=== PATIENT | female | born 1995 | race Caucasian/White ===

== ENCOUNTER 2016-12-16 19:31 | Outpatient (CLI) | payer MEDICAID ==
[~2016-12-16] VITALS: Ht 149.9 cm; Wt 65.2 kg
[2016-12-16 19:40] VITALS: BP 119/77; RESP 18; Ht 149.9 cm; Wt 65.2 kg
[2016-12-16 19:46] LABS: URINE BLOOD (Dip) POC Negative (NEGATIVE)
[2016-12-16] MEDS ORDERED: FERR134T PO (19:52)
[2016-12-16] MEDS ORDERED: PRENAT PO (19:52)
--- NOTE | 2016-12-16 20:21 | QN ---
Documentation Comment OB tiage: @34+wks GA with dizziness and some pressure No VB +FM No LOF No CTXs NST reassuring for GA Mitchell WNL --->BPP Vaginal exam and Labs and Iv hydration ordered If patient feels improved and labos and Ultrasonographic findings are wnl she can be discharged NIKHIL CAMPOS M.D. Dec 16, 2016 20:21
[2016-12-16] MEDS ORDERED: LACTATED RINGER'S 1,000 ML IV ONE (20:30)
[2016-12-16 21:50] LABS: BASOPHILS % 0.4 % (0.0-2.0); EOSINOPHILS % 0.5 % (0.0-7.0); HEMATOCRIT 36.5 % (37.0-47.0); HEMOGLOBIN 12.3 g/dl (12.0-16.0); LYMPHOCYTES # 1.8 10^3/ul (0.8-2.9); LYMPHOCYTES % 19.2 % (15.0-51.0); MEAN CORPUSCULAR HEMOGLOBIN 31.3 pg (29.0-33.0); MEAN CORPUSCULAR HGB CONC 33.6 g/dl (32.0-37.0); MEAN PLATELET VOLUME 7.2 fl (7.4-10.4); MONOCYTE # 0.7 10^3/ul (0.3-0.9); MONOCYTES % 7.1 % (0.0-11.0); NEUTROPHILS % 72.8 % (39.0-77.0); PLATELET COUNT 306 10^3/UL (140-440); RED BLOOD COUNT 3.93 10^6/ul (4.20-5.40); RED CELL DISTRIBUTION WIDTH 13.7 % (11.5-14.5); UNCORRECTED WBC 9.6 10^3/ul (4.8-10.8); WHITE BLOOD COUNT 9.6 10^3/ul (4.8-10.8)
[2016-12-16 21:54] LABS: CONDITION 1
[2016-12-16 22:03] LABS: ALBUMIN 3.5 g/dl (3.3-4.9); POTASSIUM 3.6 mmol/L (3.5-5.1)
[2016-12-16 22:05] LABS: BILIRUBIN,INDIRECT 0.3 mg/dl (0-1.1); BILIRUBIN,TOTAL 0.3 mg/dl (0.2-1.3); CREATININE 0.39 mg/dl (0.44-1.00)
[2016-12-16 22:06] LABS: ALBUMIN/GLOBULIN RATIO 1.06; CALCIUM 8.8 mg/dl (8.4-10.2); TOTAL PROTEIN 6.8 g/dl (6.1-8.1)
--- NOTE | 2016-12-16 22:08 | RADRPT ---
PROCEDURE: US OB. CLINICAL INDICATION: Abdominal pain. TECHNIQUE: Multiple sonographic images of the pelvis were obtained. Transabdominal imaging only w as performed. The images were reviewed on a PACS workstation. COMPARISON: No prior studies are available for comparison. FINDINGS: There is a single viable intrauterine gestation. Cardiac activity is present with 124 beats per minute. There is a cephalic presentation. Measurements were made in order to determine age. The results are as follows: BPD = 8.48 cm HC = 30.74 cm AC = 30.48 cm FL = 6.59 cm Estimated gestational age of approximately 34 weeks 2 days. The estimated date of delivery is 01/25/2017. The EFW = 2387 g. EFW percentile: 29% The placenta is left lateral, grade 2. There is no evidence for an abruption or placenta previa. IMPRESSION: 1. Single viable intrauterine gestation of approximately 34 weeks 2 days, based on ultrasound measu rements. The estimated date of delivery is 01/25/2017. 2. EFW percentile: 29%. RPTAT: HTAR .Romie Pack MD, Date Time Electronically viewed and signed by .Romie Pack MD, on 12/16/2016 22:08 .R/
--- NOTE | 2016-12-16 22:10 | RADRPT ---
PROCEDURE: OB ultrasound for biophysical profile CLINICAL INDICATION: Abdominal pain. TECHNIQUE: Multiple sonographic images of the pelvis were obtained. Transabdominal view of the gr avid uterus are available for review. The images were reviewed on a PACS workstation. COMPARISON: None FINDINGS: breathing movement = 2/2 tone = 2/2 motion = 2/2 Amniotic fluid = 2/2 LIN = 10.8 cm Single live intrauterine in cephalic presentation with cardiac activity (129 bpm). Left lateral placenta, grade 2. IMPRESSION: 1. Single viable intrauterine gestation. 2. Biophysical profile = 8/8. 3. LIN = 10.8 cm. RPTAT: HTAR .Romie Pack MD, Date Time Electronically viewed and signed by .Romie Pack MD, MD on 12/16/2016 22:09 .R/
--- NOTE | 2016-12-16 23:32 | TRIAGE ---
OB Triage Datetime Report Generated by CPN: 12/16/2016 23:32 Datetime: 12/16/2016 22:56 Stage of : OB Triage Labor Evaluation Frequency: IRREGULAR Monitor Mode: External Duration (sec)2399: 40-60 Quality: Mild Pattern: Normal: <= 5 Contractions in 10 Minutes Heart Rate FHR Baseline Rate: 110 Monitor Mode: External US Variability: Moderate 6-25 bpm Accelerations: 15X15 Decelerations: None Category: Category I Datetime: 12/16/2016 22:42 Stage of : OB Triage Datetime: 12/16/2016 22:05 Stage of : OB Triage Assessment Type: Triage Datetime: 12/16/2016 22:00 Labor Evaluation Frequency: IRREGULAR Monitor Mode: External Duration (sec)2399: 40-60 Quality: Mild Pattern: Normal: <= 5 Contractions in 10 Minutes Resting Tone [place]: Relaxed Heart Rate FHR Baseline Rate: 130 Monitor Mode: External US Variability: Moderate 6-25 bpm Accelerations: 15X15 Decelerations: None Category: Category I Datetime: 12/16/2016 21:13 Stage of : OB Triage Datetime: 12/16/2016 21:00 Labor Evaluation Frequency: 6-10 Monitor Mode: External Duration (sec)2399: 50-90 Quality: Mild Pattern: Normal: <= 5 Contractions in 10 Minutes Resting Tone [place]: Relaxed Heart Rate FHR Baseline Rate: 115 Monitor Mode: External US Variability: Moderate 6-25 bpm Accelerations: 15X15 Decelerations: None Datetime: 12/16/2016 20:39 Vaginal Exam Dilatation (cms): 0.0 Effacement (%): 0 Station: -3 Exam By: BE Vaginal Bleeding: None Cervix, Consistency: Firm Cervix, Position: Posterior Presentation 'A': Unable to Assess Datetime: 12/16/2016 20:15 Membrane Status: Intact Datetime: 12/16/2016 20:10 Stage of : OB Triage Datetime: 12/16/2016 20:00 Labor Evaluation Frequency: IRREGULAR Monitor Mode: External Duration (sec)2399: 40-80 Quality: Mild Pattern: Normal: <= 5 Contractions in 10 Minutes Resting Tone [place]: Relaxed Heart Rate FHR Baseline Rate: 120 Monitor Mode: External US Variability: Moderate 6-25 bpm Accelerations: 15X15 Decelerations: None Category: Category I Datetime: 12/16/2016 19:59 Time of Arrival: 12/16/2016 19:25 EGA: 34.6 Arrived By: Wheelchair Arrived From: Home Chief Complaint: ABDOMINAL CRAMPING ALL DAY DIZZY AND BLURRY VISION SINCE 1600 NAUSEA SINCE 1700 Movement: Present Contractions: Irregular Time Contractions Began: 12/16/2016 08:00 Rupture of Membranes: Denies Vaginal Bleeding: None Vaginal Discharge: Denies Recent Sexual Intercouse: Denies Abdominal Trauma: Not Applicable Patient Complaints: Cramping; Visual Disturbance; Nausea Time Provider Notified: 12/16/2016 20:05 Provider Notified: ANDRES Initial Plan: CEFM, EFW, BPP, LIN, CBC, CMP, SVE, IV HYDRATION Datetime: 12/16/2016 19:39 Stage of : OB Triage Assessment Type: Triage Maternal Assessment Level of Consciousness: Fully Conscious DTR's/Clonus: DTRs 2+; No Clonus Headache: Denies Blurred Vision: No Respiratory Effort: Unlabored; Regular Rhythm; Equal Expansion Breath Sounds, Left: Clear and Equal Breath Sounds, Right: Clear and Equal Nausea/Vomiting: Denies RUQ Epigastric Pain: Denies Lower Extremities Edema: None Degree: None Upper Extremities Edema: None Degree: None Facial Edema: None Fall Risk Assessment History of Falling: (0) No Secondary Diagnosis: (0) No Ambulatory Aid: (0) Bedrest/Nurse Assist IV Therapy: (0) No Gait: (0) Normal/Bedrest/Immobile Mental Status: (0) Oriented to Own Ability Fall Score: 0 Fall Risk Score Definition: No Risk: No action required
== END 2016-12-16 23:12 | disposition home or self-care (01) ==
LOC: OBT 19:31 → L-D 19:32 → OBT 23:12
PROVIDERS: ATTEND Obstetrics & Gynecology
DX: O26.893 Other specified pregnancy related conditions, third trimester (principal); R42 Dizziness and giddiness; R10.9 Unspecified abdominal pain; Z3A.34 34 weeks gestation of pregnancy
CPT/HCPCS: 76816; 76818; 80053; 81003; 85025; J7120; 96360; G0463

== ENCOUNTER 2016-12-23 20:14 | Outpatient (CLI) | payer MEDICAID ==
[~2016-12-23] VITALS: Ht 149.9 cm; Wt 61.6 kg
[~2016-12-23 20:14] MED LIST: FERR134T PO; PRENAT PO
[2016-12-23 21:03] VITALS: BP 118/66; PULSE 108; RESP 18; Ht 149.9 cm; Wt 61.6 kg
[2016-12-23 22:18] LABS: BASOPHILS % 0.3 % (0.0-2.0); EOSINOPHILS # 0.1 10^3/ul (0.0-0.5); EOSINOPHILS % 0.8 % (0.0-7.0); HEMOGLOBIN 11.4 g/dl (12.0-16.0); LYMPHOCYTES # 1.9 10^3/ul (0.8-2.9); LYMPHOCYTES % 19.6 % (15.0-51.0); MEAN CORPUSCULAR HEMOGLOBIN 31.4 pg (29.0-33.0); MEAN CORPUSCULAR HGB CONC 33.6 g/dl (32.0-37.0); MEAN CORPUSCULAR VOLUME 93.4 fl (82.0-101.0); MEAN PLATELET VOLUME 6.6 fl (7.4-10.4); MONOCYTE # 0.8 10^3/ul (0.3-0.9); MONOCYTES % 8.4 % (0.0-11.0); NEUTROPHIL # 6.8 10^3/ul (1.6-7.5); NEUTROPHILS % 70.9 % (39.0-77.0); PLATELET COUNT 282 10^3/UL (140-440); RED BLOOD COUNT 3.64 10^6/ul (4.20-5.40); RED CELL DISTRIBUTION WIDTH 13.9 % (11.5-14.5); UNCORRECTED WBC 9.6 10^3/ul (4.8-10.8); WHITE BLOOD COUNT 9.6 10^3/ul (4.8-10.8)
[2016-12-23 22:22] LABS: CONDITION 1
--- NOTE | 2016-12-23 22:25 | RADRPT ---
PROCEDURE: OB ultrasound for biophysical profile CLINICAL INDICATION: induced hypertension. Clinical estimated gestational age is 35 wee ks 6 days with estimated date of delivery 01/21/2017. TECHNIQUE: Multiple sonographic images of the pelvis were obtained. Transabdominal view of the gr avid uterus are available for review. The images were reviewed on a PACS workstation. COMPARISON: 12/16/2016 FINDINGS: breathing movement = 2/2 tone = 2/2 motion = 2/2 LIN = 2/2 LIN = 11.75 cm Single live intrauterine in cephalic position with cardiac activity. heart rat e equals 131 beats per minute. The placenta is left lateral, grade II IMPRESSION: 1. Single live intrauterine gestation. 2. Biophysical profile = 8/8. 3. LIN = 11.75 cm. RPTAT: HJES .Antoine Gutierres MD, Date Time Electronically viewed and signed by .Antoine Gutierres MD, on 12/23/2016 22:25 .S/
[2016-12-23 22:31] LABS: ALBUMIN 3.2 g/dl (3.3-4.9)
[2016-12-23 22:32] LABS: POTASSIUM 4.3 mmol/L (3.5-5.1)
[2016-12-23 22:34] LABS: ALBUMIN/GLOBULIN RATIO 1.03
[2016-12-23 22:44] LABS: ADD UMIC YES; URINE BILIRUBIN (Dip) NEGATIVE (NEGATIVE); URINE BLOOD (Dip) NEGATIVE (NEGATIVE); URINE COLOR LT. YELLOW (YELLOW); URINE KETONES (Dip) NEGATIVE (NEGATIVE); URINE LEUKOCYTE ESTERASE (Dip) TRACE (NEGATIVE); URINE NITRITE (Dip) NEGATIVE (NEGATIVE); URINE TOTAL PROTEIN (Dip) NEGATIVE (NEGATIVE); URINE UROBILINOGEN (Dip) 0.2 E.U./dL (0.1-1.0)
[2016-12-23 22:51] LABS: BILIRUBIN,INDIRECT 0.2 mg/dl (0-1.1); BILIRUBIN,TOTAL 0.2 mg/dl (0.2-1.3); CREATININE 0.52 mg/dl (0.44-1.00); TOTAL PROTEIN 6.3 g/dl (6.1-8.1)
[2016-12-23 22:52] LABS: URINE RBCS 0-2 /HPF (0)
[2016-12-23 22:52] LABS: CALCIUM 8.8 mg/dl (8.4-10.2); URIC ACID 4.2 mg/dl (3.1-7.9)
[2016-12-23 22:53] LABS: BACTERIA,URINE FEW; SQUAMOUS EPITHELIAL CELL,UR MANY
--- NOTE | 2016-12-23 23:10 | HP ---
Date/Time of Note Date/Time of Note DATE: 12/23/16 TIME: 23:06 OB - History Hx of Present Chief Complaint: Evaluation of oreeclampsia Estimated Due Date: Jan 21, 2017 : 1 Para: 0 Spontaneous : 0 Therapeutic : 0 Care: Good Care Obstetrical Complications: None Medical Complications: None Past Family/Social History * Past Medical, Surgical, Family and Obstetric Histories reviewed from chart. OB Admission Exam Vital Signs Vital Signs Vital Signs Date Time Temp Pulse Resp B/P Pulse Ox O2 Delivery O2 Flow Rate FiO2 12/23/16 21:03 98.4 108 18 118/66 99 Room Air Physical Exam HEENT: WNL Heart: Rhythm Normal Lungs: Clear Abdomen: WNL Extremities: Normal Reflexes: Normal Last 72 hours Lab Results CBC & BMP 12/23/16 22:05 Liver Function Test 12/23/16 22:05 Alanine Aminotransferase (ALT/SGPT) 22 Albumin 3.2 L Alkaline Phosphatase 132 H Aspartate Amino Transf (AST/SGOT) 18 Direct Bilirubin 0.00 Total Protein 6.3 OB Assessment/Plan Reason for admission: observation Plan: Other (Work up revealed no sign of preeclampsia) Other plan: D/C home MARQUIS HINOJOSA MD Dec 23, 2016 23:10
--- NOTE | 2016-12-24 00:26 | TRIAGE ---
OB Triage Datetime Report Generated by CPN: 12/24/2016 00:25 Datetime: 12/23/2016 23:00 Stage of : OB Triage Labor Evaluation Frequency: occasional Monitor Mode: External Duration (sec)2399: 70 Quality: Mild Pattern: Normal: <= 5 Contractions in 10 Minutes Resting Tone [place]: Relaxed Heart Rate FHR Baseline Rate: 125 Monitor Mode: External US Variability: Moderate 6-25 bpm Accelerations: 15X15 Decelerations: None Category: Category I Pain Assessment Pain Scale: 0 Pain Presence: None/Denies Pain Type: N/A Pain Goal: 0 Pain Relief Measures: Comfort Measures Datetime: 12/23/2016 22:10 Stage of : OB Triage Labor Evaluation Frequency: occasional Monitor Mode: External Duration (sec)2399: 70 Quality: Mild Pattern: Normal: <= 5 Contractions in 10 Minutes Resting Tone [place]: Relaxed Heart Rate FHR Baseline Rate: 130 Monitor Mode: External US Variability: Moderate 6-25 bpm Accelerations: 15X15 Decelerations: None Category: Category I Datetime: 12/23/2016 21:00 Maternal Assessment Level of Consciousness: Fully Conscious DTR's/Clonus: DTRs 2+; No Clonus Headache: Denies Blurred Vision: No Nausea/Vomiting: Denies RUQ Epigastric Pain: Denies Facial Edema: None Labor Evaluation Frequency: x2 Monitor Mode: External Duration (sec)2399: 70-90 Quality: Mild Pattern: Normal: <= 5 Contractions in 10 Minutes Resting Tone [place]: Relaxed Heart Rate FHR Baseline Rate: 135 Monitor Mode: External US Variability: Moderate 6-25 bpm Accelerations: 15X15 Decelerations: None Category: Category I Pain Assessment Pain Scale: 0 Pain Presence: None/Denies Pain Type: N/A Pain Goal: 0 Datetime: 12/23/2016 20:40 Assessment Type: Triage Maternal Assessment Level of Consciousness: Fully Conscious DTR's/Clonus: DTRs 2+; No Clonus Headache: Denies Blurred Vision: No Respiratory Effort: Unlabored Nausea/Vomiting: Denies RUQ Epigastric Pain: Denies Lower Extremities Edema: None Degree: None Upper Extremities Edema: None Degree: None Facial Edema: None Fall Risk Assessment History of Falling: (0) No Secondary Diagnosis: (0) No Ambulatory Aid: (0) Bedrest/Nurse Assist IV Therapy: (0) No Gait: (0) Normal/Bedrest/Immobile Mental Status: (0) Oriented to Own Ability Fall Score: 0 Fall Risk Score Definition: No Risk: No action required Datetime: 12/23/2016 20:15 Time of Arrival: 12/23/2016 20:12 EGA: 35.6 Arrived By: Ambulatory Arrived From: Dr. Mcconnell Chief Complaint: sent in from clinic PIH Movement: Present Contractions: Occasional Vaginal Bleeding: None Vaginal Discharge: Denies Recent Sexual Intercouse: Denies Abdominal Trauma: Not Applicable Patient Complaints: Other Initial Plan: NST, CBC, CMP, uric acid, EFW, BPP Datetime: 12/16/2016 19:59 EGA: 34.6 Datetime: 12/16/2016 19:39 Fall Score: 0 Fall Risk Score Definition: No Risk: No action required
== END 2016-12-23 23:12 | disposition home or self-care (01) ==
LOC: OBT 20:14 → L-D 20:15 → OBT 23:12
PROVIDERS: ATTEND Obstetrics & Gynecology
DX: O13.3 Gestational [pregnancy-induced] hypertension without significant proteinuria, third trimester (principal); Z3A.35 35 weeks gestation of pregnancy
CPT/HCPCS: 76818; 80053; 81001; 84560; 85025; Z7500; 81003; G0463

== ENCOUNTER 2017-01-14 17:20 | Outpatient (CLI) | payer MEDICAID ==
[~2017-01-14] VITALS: Ht 149.9 cm; Wt 70.6 kg
[2017-01-14 17:35] VITALS: BP 120/78; Ht 149.9 cm; Wt 70.6 kg
--- NOTE | 2017-01-14 18:19 | RADRPT ---
PROCEDURE: Biophysical profile CLINICAL INDICATION: Headache TECHNIQUE: Color and peace-scale ultrasound images of an intrauterine gestation were obtained. COMPARISON: December 23, 2016 FINDINGS: A single live intrauterine gestation is identified in cephalic position with an estimated hear t rate of 141 beats per minute. The placenta is located fundally and has a grade of 2. The cervix is obscured by head shadows. No evidence of abruption identified. LIN is 14.6 cm. movement 2/2. tone 2/2. breathing movement 2/2. Qualitative AFV 2/2 Total biophysical profile 07/07 IMPRESSION: 07/07 biophysical profile. RPTAT: AA .Jay Rodriguez MD, Date Time Electronically viewed and signed by .Jay Rodriguez MD, MD on 01/14/2017 18:19 .P/
[2017-01-14 19:19] LABS: ADD UMIC YES; URINE BILIRUBIN (Dip) NEGATIVE (NEGATIVE); URINE BLOOD (Dip) NEGATIVE (NEGATIVE); URINE COLOR LT. YELLOW (YELLOW); URINE GLUCOSE (Dip) NEGATIVE (NEGATIVE); URINE KETONES (Dip) NEGATIVE (NEGATIVE); URINE LEUKOCYTE ESTERASE (Dip) TRACE (NEGATIVE); URINE NITRITE (Dip) NEGATIVE (NEGATIVE); URINE TOTAL PROTEIN (Dip) NEGATIVE (NEGATIVE); URINE UROBILINOGEN (Dip) 0.2 E.U./dL (0.1-1.0)
[2017-01-14 19:28] LABS: URINE RBCS 0-2 /HPF (0)
[2017-01-14 19:29] LABS: BACTERIA,URINE FEW
[2017-01-14 19:31] LABS: BASOPHILS % 0.3 % (0.0-2.0); EOSINOPHILS % 0.4 % (0.0-7.0); HEMATOCRIT 36.1 % (37.0-47.0); HEMOGLOBIN 12.1 g/dl (12.0-16.0); LYMPHOCYTES # 1.7 10^3/ul (0.8-2.9); LYMPHOCYTES % 17.1 % (15.0-51.0); MEAN CORPUSCULAR HEMOGLOBIN 31.5 pg (29.0-33.0); MEAN CORPUSCULAR HGB CONC 33.6 g/dl (32.0-37.0); MEAN CORPUSCULAR VOLUME 93.8 fl (82.0-101.0); MEAN PLATELET VOLUME 7.1 fl (7.4-10.4); MONOCYTE # 0.8 10^3/ul (0.3-0.9); MONOCYTES % 8.2 % (0.0-11.0); NEUTROPHIL # 7.4 10^3/ul (1.6-7.5); PLATELET COUNT 275 10^3/UL (140-440); RED BLOOD COUNT 3.84 10^6/ul (4.20-5.40); RED CELL DISTRIBUTION WIDTH 14.5 % (11.5-14.5)
[2017-01-14 19:34] LABS: CONDITION 1
[2017-01-14] MEDS ORDERED: ACETAMINOPHEN 500 MG TAB PO STA (19:36)
[2017-01-14 19:44] LABS: INR 0.9; PROTIME 12.1 Sec (12.2-14.2); PT RATIO 0.9
[2017-01-14 19:45] LABS: PARTIAL THROMBOPLASTIN TIME 28.1 Sec (25.0-35.0)
[2017-01-14 19:59] LABS: ALBUMIN 3.2 g/dl (3.3-4.9); POTASSIUM 3.9 mmol/L (3.5-5.1)
[2017-01-14 20:01] LABS: BILIRUBIN,INDIRECT 0.3 mg/dl (0-1.1); BILIRUBIN,TOTAL 0.3 mg/dl (0.2-1.3); CREATININE 0.45 mg/dl (0.44-1.00)
[2017-01-14 20:02] LABS: ALBUMIN/GLOBULIN RATIO 1.03; CALCIUM 8.7 mg/dl (8.4-10.2); TOTAL PROTEIN 6.3 g/dl (6.1-8.1)
[2017-01-14 20:58] LABS: URIC ACID 4.2 mg/dl (3.1-7.9)
--- NOTE | 2017-01-14 21:25 | QN ---
Documentation Comment 22-year-old with IUP at 39 weeks with care at [facility] presented with complaint of cramps and contractions and headache with nausea. Patient had one-time elevated blood pressure 130s over 80s range when she was in the office visit. She currently denies any blurred vision or epigastric pain or right upper quadrant pain. She denies any leaking of fluid, vaginal bleeding or decreased movement. Her nausea started since today and she had vomiting 1. General appearance: Patient is alert and oriented and is in mild distress. Abdomen is soft, nontender, no rebound tenderness, no guarding no rigidity. Next Fundal height consistent with gestational age. NST: Category 1. Some contractions on the monitor seen. Blood pressures serially checked during observation all between 110-120s over 70s. PIH panel negative Cervical exam: Closed/long and high. BPP: 07/07 LIN: 14.6 PROCEDURE: Biophysical profile CLINICAL INDICATION: Headache TECHNIQUE: Color and peace-scale ultrasound images of an intrauterine gestation were obtained. COMPARISON: December 23, 2016 FINDINGS: A single live intrauterine gestation is identified in cephalic position with an estimated heart rate of 141 beats per minute. The placenta is located fundally and has a grade of 2. The cervix is obscured by head shadows. No evidence of abruption identified. LIN is 14.6 cm. movement 2/2. tone 2/2. breathing movement 2/2. Qualitative AFV 2/2 Total biophysical profile 07/07 IMPRESSION: 07/07 biophysical profile. PIH labs: negative Assessment IUP at 39 weeks Headache, transient elevated borderline blood pressure. No clear evidence of preeclampsia. Headache resolved with Tylenol next PIH labs normal False labor pain, resolved with hydration No cervical change noted in repeat examination testing reassuring Patient was discharged home with strict preeclampsia precautions as well as labor precautions and kick count next Follow-up with OB clinic in the next 2-3 days recommended Signs and symptoms of preeclampsia discussed in detail with the patient RT to triage as needed any other concerns BOZENA ROCHE MD Jan 14, 2017 21:25
--- NOTE | 2017-01-14 22:21 | TRIAGE ---
OB Triage Datetime Report Generated by CPN: 01/14/2017 22:20 Datetime: 01/14/2017 19:29 Maternal Assessment Level of Consciousness: Fully Conscious Headache: Generalized Blurred Vision: No Nausea/Vomiting: Hx of Nausea/Vomiting RUQ Epigastric Pain: Denies Facial Edema: None Labor Evaluation Frequency: 3-6 Monitor Mode: External Duration (sec)2399: 40-60 Quality: Mild Pattern: Normal: <= 5 Contractions in 10 Minutes Resting Tone [place]: Relaxed Heart Rate FHR Baseline Rate: 120 Monitor Mode: External US FHR Baseline Changes: No Baseline Change Variability: Moderate 6-25 bpm Accelerations: 15X15 Decelerations: None Category: Category I Datetime: 01/14/2017 18:54 Heart Rate FHR Baseline Rate: 125 Monitor Mode: External US Variability: Moderate 6-25 bpm Accelerations: 15X15 Decelerations: None Category: Category I Datetime: 01/14/2017 18:44 Labor Evaluation Frequency: 1-5 Monitor Mode: External Duration (sec)2399: 30-50 Pattern: Normal: <= 5 Contractions in 10 Minutes Resting Tone [place]: Relaxed Heart Rate FHR Baseline Rate: 125 Variability: Moderate 6-25 bpm Accelerations: 15X15 Decelerations: None Category: Category I Datetime: 01/14/2017 18:05 Comments: US AT BEDSIDE Datetime: 01/14/2017 17:39 Stage of : OB Triage Maternal Assessment Level of Consciousness: Fully Conscious DTR's/Clonus: DTRs 2+; No Clonus Headache: Denies Blurred Vision: No Respiratory Effort: Unlabored; Regular Rhythm; Equal Expansion Breath Sounds, Left: Clear and Equal Breath Sounds, Right: Clear and Equal Nausea/Vomiting: Denies RUQ Epigastric Pain: Denies Facial Edema: None Temperature Route: Axillary Fall Risk Assessment History of Falling: (0) No Secondary Diagnosis: (0) No Ambulatory Aid: (0) Bedrest/Nurse Assist IV Therapy: (0) No Gait: (0) Normal/Bedrest/Immobile Mental Status: (0) Oriented to Own Ability Fall Score: 0 Fall Risk Score Definition: No Risk: No action required Monitor Mode: External Heart Rate FHR Baseline Rate: 135 Monitor Mode: External US Variability: Moderate 6-25 bpm Accelerations: 15X15 Decelerations: None Category: Category I Pain Assessment Pain Scale: 5 Pain Presence: Intermittent Pain Type: Cramping Vaginal Exam Dilatation (cms): 0.0 Effacement (%): 50 Station: -3 Exam By: Sang BECKWITH Datetime: 01/14/2017 17:37 Time of Arrival: 01/14/2017 17:16 EGA: 39.0 Arrived By: Ambulatory Arrived From: Home Chief Complaint: N/V, HEADACHE, PRESSURE Movement: Present Rupture of Membranes: Denies Vaginal Discharge: Denies Recent Sexual Intercouse: Denies Abdominal Trauma: Not Applicable Patient Complaints: Cramping; Nausea; Vomiting Time Provider Notified: 01/14/2017 17:16 Provider Notified: DR. TERRELL Initial Plan: NST Datetime: 12/23/2016 20:40 Fall Score: 0 Fall Risk Score Definition: No Risk: No action required Datetime: 12/23/2016 20:15 EGA: 35.6 Chief Complaint: sent in from clinic for [facility] panel Time Provider Notified: 12/23/2016 21:00 Provider Notified: Delshad Datetime: 12/16/2016 19:59 EGA: 34.6 Datetime: 12/16/2016 19:39 Fall Score: 0 Fall Risk Score Definition: No Risk: No action required
== END 2017-01-14 21:57 | disposition home or self-care (01) ==
LOC: OBT 17:20 → L-D 17:33 → OBT 21:57
PROVIDERS: ATTEND Obstetrics & Gynecology
DX: O62.9 Abnormality of forces of labor, unspecified (principal); R51 Headache; O21.0 Mild hyperemesis gravidarum; Z3A.39 39 weeks gestation of pregnancy
CPT/HCPCS: 76818; 80053; 81001; 81003; 84560; 85025; 85610; 85730; Z7610

== ENCOUNTER 2017-01-15 10:18 | Inpatient (IN) | payer MEDICAID ==
[~2017-01-15] VITALS: Ht 149.9 cm; Wt 69.3 kg
[2017-01-15 10:26] VITALS: Ht 149.9 cm; Wt 69.3 kg
[2017-01-15 10:27] VITALS: BP 120/65; PULSE 98; RESP 18
--- NOTE | 2017-01-15 13:28 | RADRPT ---
PROCEDURE: US OB biophysical profile. CLINICAL INDICATION: evaluation TECHNIQUE: Multiple sonographic images of the pelvis were obtained. The images were reviewed on a PACS workstation. COMPARISON: Obstetrical ultrasound from 01/14/2017 FINDINGS: There is a single viable intrauterine gestation. Cardiac activity is present with 121 beats per min juana. There is a vertex presentation. The placenta is fundal. There is no evidence of placental abruption. There is a mildly low amount of amniotic fluid with an LIN = 7.9 cm. Biophysical profile: movement 2/2 tone 2/2. breathing 2/2 LIN 2/2 Total 07/07 RPTAT: AA . IMPRESSION: Normal biophysical profile. Mildly low ILN of 7.9 cm, compared with an LIN of 14.6 cm yesterday. Physician Bridger Date Time Electronically viewed and signed by Physician Bridger on 01/15/2017 13:27 /
--- NOTE | 2017-01-15 17:19 | CONS ---
Date/Time of Note Date/Time of Note DATE: 01/15/17 TIME: 16:41 Consultation Date/Type/Reason Admit Date/Time Initial Consult Date January 15, 2017 Triage consult and H&P This patient is a 22 years old 1 para 0 which is 39 weeks and 1 day today. She came to triage area for repeat monitoring, , She actually was sent from the NST clinic to be further evaluated and possible induction,, , On examination her contractions very irregular and every 8-10 minutes, , heart tone is normal with good variability and acceleration baseline is around 115., On pelvic examination cervix is closed 30% effaced and high -4 posterior. Her blood pressure is 120/65 pulse rate 98 on ultrasound study her biophysical profile is 8 out of 8 . , Her LIN which was 14.6 yesterday today is 7.9 cm I I discussed the case with Dr. Forbes as well as her attending physician Dr. Carmen we will admit her for observation and most likely induction the patient family also insisting on her admission and induction 24 HR Interval Summary Subjective hx not possible: pt non-verbal, pt critical Constitutional: diaphoresis, no complaints Detailed Summary Eyes: no complaints ENT: no complaints Respiratory: no complaints Cardiovascular: no complaints Gastrointestinal: no complaints Genitourinary: other Musculoskeletal: no complaints Skin: no complaints Endocrine: no complaints Psychological: no complaints Immunologic: no complaints Additional Comments Will admit for observation and induction. Exam/Review of Systems Vital Signs Vitals Vital Signs Date Time Temp Pulse Resp B/P Pulse Ox O2 Delivery O2 Flow Rate FiO2 01/15/17 10:27 98.2 98 18 120/65 Room Air LENARD MOORE MD Jan 15, 2017 17:19
[2017-01-15] MEDS ORDERED: LACTATED RINGER'S 1,000 ML IV SCH (18:12)
[2017-01-15] MEDS ORDERED: OXYTOCIN 30 UNITS/LR 500 ML IV PRN (18:30)
[2017-01-15] MEDS ORDERED: CARBOPROST 250 MCG INJ IM PRN (18:30)
[2017-01-15] MEDS ORDERED: BUTORPHANOL 2 MG INJ IV PRN (18:30)
[2017-01-15] MEDS ORDERED: METHYLERGONOVINE 0.2 MG INJ IM PRN (18:30)
[2017-01-15] MEDS ORDERED: IBUPROFEN 600 MG TAB PO PRN (18:30)
[2017-01-15] MEDS ORDERED: LACTATED RINGER'S 1,000 ML IV PRN (18:30)
[2017-01-15] MEDS ORDERED: MISOPROSTOL 200 MCG TAB PR PRN (18:30)
[2017-01-15] MEDS ORDERED: LIDOCAINE 1% (MPF) 30 ML INJ INJ PRN (18:30)
[2017-01-15] MEDS ORDERED: OXYTOCIN 30 UNITS/LR 500 ML IV SCH ×2 (18:30)
[2017-01-15 20:28] LABS: INR 0.97; PROTIME 12.9 Sec (12.2-14.2)
[2017-01-15 20:38] LABS: BASOPHILS % 0.2 % (0.0-2.0); EOSINOPHILS % 0.1 % (0.0-7.0); HEMATOCRIT 37.2 % (37.0-47.0); HEMOGLOBIN 12.6 g/dl (12.0-16.0); LYMPHOCYTES # 1.6 10^3/ul (0.8-2.9); LYMPHOCYTES % 17.3 % (15.0-51.0); MEAN CORPUSCULAR HEMOGLOBIN 31.5 pg (29.0-33.0); MEAN CORPUSCULAR HGB CONC 33.8 g/dl (32.0-37.0); MEAN CORPUSCULAR VOLUME 93.2 fl (82.0-101.0); MEAN PLATELET VOLUME 7.4 fl (7.4-10.4); MONOCYTE # 0.6 10^3/ul (0.3-0.9); MONOCYTES % 6.8 % (0.0-11.0); NEUTROPHILS % 75.6 % (39.0-77.0); PLATELET COUNT 284 10^3/UL (140-440); RED BLOOD COUNT 3.99 10^6/ul (4.20-5.40); RED CELL DISTRIBUTION WIDTH 14.6 % (11.5-14.5); UNCORRECTED WBC 9.3 10^3/ul (4.8-10.8); WHITE BLOOD COUNT 9.3 10^3/ul (4.8-10.8)
[2017-01-15 20:41] LABS: CONDITION 1; LH ANALYZER COMMENTS 1
[2017-01-15] MEDS ORDERED: ACETAMINOPHEN 325 MG TAB PO ONE (21:00)
[2017-01-15 22:46] LABS: PARTIAL THROMBOPLASTIN TIME 27.7 Sec (25.0-35.0)
--- NOTE | 2017-01-16 10:21 | NSTRPT ---
NST Information Datetime Report Generated by CPN: 01/16/2017 10:21 Datetime: 01/15/2017 08:11 NST Information EGA: 39.1 Test Number: 6 Time on Monitor: 01/15/2017 08:28 Time off Monitor: 01/15/2017 09:10 NST Duration (Min): 42 Reason for NST: Gestational Hypertension Test and Monitor Explained: Monitor Explained; Test Explained; Verbalized Understanding Pulse: 74 Resp: 18 SBP: 107 DBP: 58 Test Evaluation NST Interventions: Reposition Patient; Acoustic Stimulation Patient States Movement: Present Contraction Frequency: x3, mild FHR Baseline : 110 Variability: Moderate 6-25bpm Accelerations: 15X15 Decelerations: Variable FHR Category: Category I NST Results: Questionable Comments: PT TO U/S. LIN 15.8, cephalic Dr. Perla informed of variable deceleration. MD recommends delivery of pt. Pt to OB Triage Electronically Signed By E-Signature: with User ID: [id number], Addendum/Amendment: Signed for Dr. Tafti Datetime: 01/12/2017 08:11 NST Information EGA: 38.5 NST Duration (Min): 26 Datetime: 01/08/2017 08:14 NST Information EGA: 38.1 NST Duration (Min): 26 Datetime: 01/05/2017 08:10 NST Information EGA: 37.5 NST Duration (Min): 33 Datetime: 01/01/2017 08:14 NST Information EGA: 37.1 NST Duration (Min): 24 Datetime: 12/29/2016 08:16 NST Information EGA: 36.5 NST Duration (Min): 40
== END 2017-01-15 23:30 | disposition home or self-care (01) | DRG 778 ==
LOC: OBT 10:18 → L-D 10:19 → OBT 19:28
PROVIDERS: ADMIT Obstetrics & Gynecology; ATTEND Obstetrics & Gynecology
DX: O60.03 Preterm labor without delivery, third trimester (principal); Z3A.39 39 weeks gestation of pregnancy
CPT/HCPCS: 76818; 85025; 85610; 85730; 86592; 86900; 86901; 87340; G0463; J7120

== ENCOUNTER 2017-01-20 20:00 | Outpatient (CLI) | payer MEDICAID ==
[~2017-01-20] VITALS: Ht 149.9 cm; Wt 72.0 kg
[2017-01-20 20:24] LABS: URINE BLOOD (Dip) POC Negative (NEGATIVE)
[2017-01-20 20:50] VITALS: BP 128/75; PULSE 106; RESP 18; Ht 149.9 cm; Wt 72.0 kg
--- NOTE | 2017-01-20 21:19 | NSTRPT ---
NST Information Datetime Report Generated by CPN: 01/20/2017 21:19 Datetime: 01/19/2017 08:12 NST Information EGA: 39.5 Test Number: 7 Time on Monitor: 01/19/2017 08:32 Time off Monitor: 01/19/2017 08:52 NST Duration (Min): 20 Reason for NST: Gestational Hypertension Test and Monitor Explained: Monitor Explained; Test Explained Temp : 98.3 Pulse: 86 Resp: 16 SBP: 120 DBP: 63 Test Evaluation NST Interventions: None Patient States Movement: Present Contraction Frequency: X1` FHR Baseline : 125 Variability: Moderate 6-25bpm Accelerations: 15X15 Decelerations: None FHR Category: Category I NST Results: Reactive Comments: To u/s, CEPHALIC, LIN 10.5 0902-Pt home undelivered with labor precautions, has clinic appt tomorrow, kick count inst ructions reviewed and follow up NST appt given. States understanding and denies further questions at this time. Electronically Signed By E-Signature: with User ID: [id number] Datetime: 01/15/2017 08:11 NST Information EGA: 39.1 NST Duration (Min): 42 Datetime: 01/12/2017 08:11 NST Information EGA: 38.5 NST Duration (Min): 26 Datetime: 01/08/2017 08:14 NST Information EGA: 38.1 NST Duration (Min): 26 Datetime: 01/05/2017 08:10 NST Information EGA: 37.5 NST Duration (Min): 33 Datetime: 01/01/2017 08:14 NST Information EGA: 37.1 NST Duration (Min): 24 Datetime: 12/29/2016 08:16 NST Information EGA: 36.5 NST Duration (Min): 40
--- NOTE | 2017-01-20 22:32 | TRIAGE ---
OB Triage Datetime Report Generated by CPN: 01/20/2017 22:32 Datetime: 01/20/2017 21:11 Stage of : OB Triage Monitor Mode: External Quality: Mild Pattern: Normal: <= 5 Contractions in 10 Minutes Resting Tone [place]: Relaxed Heart Rate FHR Baseline Rate: 130 Monitor Mode: External US FHR Baseline Changes: No Baseline Change Variability: Moderate 6-25 bpm Accelerations: 15X15 Decelerations: None Category: Category I Datetime: 01/20/2017 20:46 Stage of : OB Triage Monitor Mode: External Quality: Mild Pattern: Normal: <= 5 Contractions in 10 Minutes Resting Tone [place]: Relaxed Heart Rate FHR Baseline Rate: 120 Monitor Mode: External US FHR Baseline Changes: No Baseline Change Variability: Moderate 6-25 bpm Accelerations: 15X15 Decelerations: None Category: Category I Datetime: 01/20/2017 20:41 Time of Arrival: 01/20/2017 19:58 EGA: 39.6 Arrived By: Ambulatory Arrived From: Home Chief Complaint: sent from clinic d/t elevated BP Movement: Present Initial Plan: EFM Datetime: 01/20/2017 20:16 Maternal Assessment Level of Consciousness: Fully Conscious DTR's/Clonus: DTRs 1+ Headache: Denies Blurred Vision: No Nausea/Vomiting: Denies RUQ Epigastric Pain: Denies Facial Edema: None Labor Evaluation Frequency: placed Monitor Mode: External Resting Tone [place]: Relaxed Monitor Mode: External US Comments: FHT 120 Pain Assessment Pain Scale: 0 Pain Presence: None/Denies Pain Type: N/A Datetime: 01/15/2017 23:17 Stage of : Labor Datetime: 01/15/2017 23:00 Stage of : Labor Maternal Assessment Level of Consciousness: Fully Conscious Labor Evaluation Frequency: Irregular Monitor Mode: External Duration (sec)2399: 40-80 Quality: Mild Pattern: Normal: <= 5 Contractions in 10 Minutes Resting Tone [place]: Relaxed Heart Rate FHR Baseline Rate: 120 Monitor Mode: External US FHR Baseline Changes: No Baseline Change Variability: Moderate 6-25 bpm Accelerations: 15X15 Decelerations: None Category: Category I Datetime: 01/15/2017 22:00 Stage of : Labor Maternal Assessment Level of Consciousness: Fully Conscious Labor Evaluation Frequency: Irregular Monitor Mode: External Duration (sec)2399: 60-100 Quality: Mild Pattern: Normal: <= 5 Contractions in 10 Minutes Resting Tone [place]: Relaxed Heart Rate FHR Baseline Rate: 120 Monitor Mode: External US FHR Baseline Changes: No Baseline Change Variability: Moderate 6-25 bpm Accelerations: 15X15 Decelerations: None Pain Assessment Pain Scale: 5 Pain Presence: Intermittent Pain Type: Cramping; Contraction Pain Location: Abdomen; Back Pain Goal: 2 Pain Relief Measures: Comfort Measures Datetime: 01/15/2017 21:16 Vaginal Exam Dilatation (cms): 0.5 Effacement (%): 50 Station: -3 Exam By: Dr Gomes Membrane Status: Intact Vaginal Bleeding: None Cervix, Consistency: Soft Cervix, Position: Posterior Presentation 'A': Cephalic Datetime: 01/15/2017 21:00 Stage of : Labor Maternal Assessment Level of Consciousness: Fully Conscious Labor Evaluation Frequency: 7-10 Monitor Mode: External Duration (sec)2399: 60-100 Quality: Mild Pattern: Normal: <= 5 Contractions in 10 Minutes Resting Tone [place]: Relaxed Heart Rate FHR Baseline Rate: 120 Monitor Mode: External US FHR Baseline Changes: No Baseline Change Variability: Moderate 6-25 bpm Accelerations: 15X15 Decelerations: None Category: Category I Pain Assessment Pain Scale: 5 Pain Presence: Intermittent Pain Type: Cramping; Contraction Pain Location: Abdomen; Back Pain Goal: 2 Pain Relief Measures: Comfort Measures Pain Assessment Comments: Patient states the pain is still tolerable Datetime: 01/15/2017 20:48 Headache: Generalized Datetime: 01/15/2017 20:41 Assessment Type: Admission Assessment Vaginal Bleeding: None Maternal Assessment Level of Consciousness: Fully Conscious DTR's/Clonus: DTRs 2+; No Clonus Headache: Denies Blurred Vision: No Respiratory Effort: Unlabored; Regular Rhythm; Equal Expansion Breath Sounds, Left: Clear and Equal Breath Sounds, Right: Clear and Equal Nausea/Vomiting: Denies RUQ Epigastric Pain: Denies Lower Extremities Edema: None Degree: None Upper Extremities Edema: None Degree: None Facial Edema: None Fall Risk Assessment History of Falling: (0) No Secondary Diagnosis: (0) No Ambulatory Aid: (0) Bedrest/Nurse Assist IV Therapy: (0) No Gait: (0) Normal/Bedrest/Immobile Mental Status: (0) Oriented to Own Ability Fall Score: 0 Fall Risk Score Definition: No Risk: No action required Labor Evaluation Frequency: 7-10 Duration (sec)2399: 50-100 Quality: Mild Pattern: Normal: <= 5 Contractions in 10 Minutes Resting Tone [place]: Relaxed Contraction Comments: Patient states the contractions are becoming more regular throughout the day Heart Rate FHR Baseline Rate: 125 Variability: Moderate 6-25 bpm Accelerations: 15X15 Decelerations: None Category: Category I Pain Assessment Pain Scale: 5 Pain Presence: Intermittent Pain Type: Cramping; Contraction Pain Location: Abdomen; Back Pain Goal: 2 Pain Assessment Comments: Patient states the pain is still tolerable Membrane Status: Intact Datetime: 01/15/2017 20:00 Stage of : Labor Labor Evaluation Frequency: 7-15 Monitor Mode: External Duration (sec)2399: 50-80 Quality: Mild Pattern: Normal: <= 5 Contractions in 10 Minutes Resting Tone [place]: Relaxed Heart Rate FHR Baseline Rate: 120 Monitor Mode: External US FHR Baseline Changes: No Baseline Change Variability: Moderate 6-25 bpm Accelerations: 15X15 Decelerations: None Category: Category I Pain Assessment Pain Scale: 5 Pain Presence: Intermittent Pain Type: Cramping; Contraction Pain Location: Abdomen; Back Pain Goal: 2 Pain Relief Measures: Comfort Measures Pain Assessment Comments: Patient states the pain is still tolerable Datetime: 01/15/2017 19:00 Labor Evaluation Frequency: IRREGULAR Monitor Mode: External Duration (sec)2399: 50-100 Quality: Mild Pattern: Normal: <= 5 Contractions in 10 Minutes Resting Tone [place]: Relaxed Heart Rate FHR Baseline Rate: 125 Monitor Mode: External US FHR Baseline Changes: No Baseline Change Variability: Moderate 6-25 bpm Accelerations: 15X15 Decelerations: None Category: Category I Datetime: 01/15/2017 18:00 Labor Evaluation Frequency: IRREGULAR Monitor Mode: External Duration (sec)2399: 40-100 Quality: Mild Pattern: Normal: <= 5 Contractions in 10 Minutes Resting Tone [place]: Relaxed Heart Rate FHR Baseline Rate: 120 Monitor Mode: External US FHR Baseline Changes: No Baseline Change Variability: Moderate 6-25 bpm Accelerations: 15X15 Decelerations: None Category: Category I Datetime: 01/15/2017 17:00 Labor Evaluation Frequency: IRREGULAR Monitor Mode: External Duration (sec)2399: 50-110 Quality: Mild Pattern: Normal: <= 5 Contractions in 10 Minutes Resting Tone [place]: Relaxed Heart Rate FHR Baseline Rate: 125 Monitor Mode: External US FHR Baseline Changes: No Baseline Change Variability: Moderate 6-25 bpm Accelerations: 15X15 Decelerations: None Category: Category I Datetime: 01/15/2017 16:00 Labor Evaluation Frequency: IRREGULAR Monitor Mode: External Duration (sec)2399: 50-100 Quality: Mild Pattern: Normal: <= 5 Contractions in 10 Minutes Resting Tone [place]: Relaxed Heart Rate FHR Baseline Rate: 125 Monitor Mode: External US FHR Baseline Changes: No Baseline Change Variability: Moderate 6-25 bpm Accelerations: 15X15 Decelerations: None Category: Category I Datetime: 01/15/2017 15:00 Labor Evaluation Frequency: OCCAS Monitor Mode: External Duration (sec)2399: 50-110 Quality: Mild Pattern: Normal: <= 5 Contractions in 10 Minutes Resting Tone [place]: Relaxed Heart Rate FHR Baseline Rate: 120 Monitor Mode: External US FHR Baseline Changes: No Baseline Change Variability: Moderate 6-25 bpm Accelerations: 15X15 Decelerations: Variable Category: Category II Datetime: 01/15/2017 14:00 Labor Evaluation Frequency: IRREGULAR Monitor Mode: External Duration (sec)2399: 50-120 Quality: Mild Pattern: Normal: <= 5 Contractions in 10 Minutes Resting Tone [place]: Relaxed Heart Rate FHR Baseline Rate: 115 Monitor Mode: External US FHR Baseline Changes: No Baseline Change Variability: Moderate 6-25 bpm Accelerations: 15X15 Decelerations: None Category: Category I Datetime: 01/15/2017 13:00 Labor Evaluation Frequency: OCCAS Monitor Mode: External Duration (sec)2399: 40-110 Quality: Mild Pattern: Normal: <= 5 Contractions in 10 Minutes Resting Tone [place]: Relaxed Heart Rate FHR Baseline Rate: 115 Monitor Mode: External US FHR Baseline Changes: No Baseline Change Variability: Moderate 6-25 bpm Accelerations: 15X15 Decelerations: None Category: Category I Datetime: 01/15/2017 12:00 Labor Evaluation Frequency: OCCAS Monitor Mode: External Duration (sec)2399: 40-120 Quality: Mild Pattern: Normal: <= 5 Contractions in 10 Minutes Resting Tone [place]: Relaxed Heart Rate FHR Baseline Rate: 120 Monitor Mode: External US FHR Baseline Changes: No Baseline Change Variability: Moderate 6-25 bpm Accelerations: 15X15 Decelerations: None Category: Category I Datetime: 01/15/2017 11:02 Vaginal Exam Dilatation (cms): 0.0 Effacement (%): 0 Station: -4 Exam By: A GHUKASYAN Datetime: 01/15/2017 10:54 Labor Evaluation Frequency: IRREGULAR Monitor Mode: External Duration (sec)2399: 40-90 Quality: Mild Pattern: Normal: <= 5 Contractions in 10 Minutes Resting Tone [place]: Relaxed Heart Rate FHR Baseline Rate: 120 Monitor Mode: External US Variability: Moderate 6-25 bpm Accelerations: 15X15 Decelerations: None Category: Category I Datetime: 01/15/2017 10:31 Assessment Type: Admission Assessment Maternal Assessment Level of Consciousness: Fully Conscious DTR's/Clonus: DTRs 2+; No Clonus Headache: Denies Blurred Vision: No Respiratory Effort: Unlabored; Regular Rhythm; Equal Expansion Breath Sounds, Left: Clear and Equal Breath Sounds, Right: Clear and Equal Nausea/Vomiting: Denies RUQ Epigastric Pain: Denies Lower Extremities Edema: None Degree: None Upper Extremities Edema: None Degree: None Facial Edema: None Fall Risk Assessment History of Falling: (0) No Secondary Diagnosis: (0) No Ambulatory Aid: (0) Bedrest/Nurse Assist IV Therapy: (0) No Gait: (0) Normal/Bedrest/Immobile Mental Status: (0) Oriented to Own Ability Fall Score: 0 Fall Risk Score Definition: No Risk: No action required Datetime: 01/15/2017 10:29 Time of Arrival: 01/15/2017 10:15 EGA: 39.1 Arrived By: Ambulatory Arrived From: Other Unit in Hospital Chief Complaint: MONITORING Movement: Present Contractions: Denies/Absent Rupture of Membranes: Denies Vaginal Bleeding: None Vaginal Discharge: Denies Recent Sexual Intercouse: Denies Abdominal Trauma: Not Applicable Patient Complaints: Other Time Provider Notified: 01/15/2017 11:20 Provider Notified: DR TERRELL Initial Plan: NST, BPP Datetime: 01/14/2017 21:41 Stage of : OB Triage Datetime: 01/14/2017 21:33 Headache: Denies Blurred Vision: No RUQ Epigastric Pain: Denies Facial Edema: None Monitor Mode: External Quality: Mild Pattern: Normal: <= 5 Contractions in 10 Minutes Resting Tone [place]: Relaxed Heart Rate FHR Baseline Rate: 130 Monitor Mode: External US Variability: Moderate 6-25 bpm Accelerations: 15X15 Decelerations: None Category: Category I Pain Assessment Pain Scale: 3 Pain Presence: Intermittent Pain Type: Cramping Pain Location: Abdomen Vaginal Exam Dilatation (cms): 0.0 Effacement (%): 50 Station: -2 Exam By: E Keon Membrane Status: Intact Vaginal Bleeding: None Cervix, Consistency: Moderate Cervix, Position: Posterior Datetime: 01/14/2017 20:30 Labor Evaluation Frequency: 4-8 Monitor Mode: External Quality: Mild Pattern: Normal: <= 5 Contractions in 10 Minutes Resting Tone [place]: Relaxed Heart Rate FHR Baseline Rate: 120 Monitor Mode: External US FHR Baseline Changes: No Baseline Change Variability: Moderate 6-25 bpm Accelerations: 15X15 Decelerations: None Category: Category I Datetime: 01/14/2017 17:39 Fall Score: 0 Fall Risk Score Definition: No Risk: No action required Datetime: 01/14/2017 17:37 EGA: 39.0 Datetime: 12/23/2016 20:40 Fall Score: 0 Fall Risk Score Definition: No Risk: No action required Datetime: 12/23/2016 20:15 EGA: 35.6 Datetime: 12/16/2016 19:59 EGA: 34.6 Datetime: 12/16/2016 19:39 Fall Score: 0 Fall Risk Score Definition: No Risk: No action required
--- NOTE | 2017-01-20 22:57 | HP ---
Date/Time of Note Date/Time of Note DATE: 01/20/17 TIME: 22:56 OB - History Hx of Present Free Text/Dictation OB Triage Pt is a 22yo G1 at 39+6 presenting to OB triage from clinic for evaluation of BPs and possible induction of labor. BPs in clinic 129/87 and 133/88. On review of records, BP on 06/23/16 135/80. Pt reports normal FM, denies LOF, VB, UCs, ROBLES, vision changes or RUQ pain. Care: Good Care Past Family/Social History * Past Medical, Surgical, Family and Obstetric Histories reviewed from chart. OB Admission Exam Vital Signs Vital Signs Vital Signs Date Time Temp Pulse Resp B/P Pulse Ox O2 Delivery O2 Flow Rate FiO2 01/20/17 20:50 98.8 106 18 128/75 Room Air 113-128/65-75 Physical Exam Heart Rate: 120's (to 130s) Accelerations: Accelerations Present Decelerations: No Decelerations Varibility: Moderate OB Assessment/Plan Other Assessment: Normal BPs w/o signs/sxs of Gestational HTN or PreEclampsia Reassuring FWB Other plan: Given normal BPs and negative proteinuria, no further workup indicated NST reactive and reassuring Pt appropriate for d/c home w/continued 2x weekly ANTC and weekly clinic visits IOL scheduled for 41wks GA Labor, ROM and FKC precautions reviewed RENEA GALEANA MD Jan 20, 2017 22:57
== END 2017-01-20 22:29 | disposition home or self-care (01) ==
LOC: OBT 20:00 → L-D 20:01 → OBT 22:29
PROVIDERS: ATTEND Obstetrics & Gynecology
DX: O14.93 Unspecified pre-eclampsia, third trimester (principal); Z3A.39 39 weeks gestation of pregnancy
CPT/HCPCS: 81003; Z7500; G0463

== ENCOUNTER 2017-01-26 21:13 | Inpatient (IN) | payer MEDICAID ==
[~2017-01-26] VITALS: Ht 149.9 cm; Wt 71.0 kg
[2017-01-26 21:26] VITALS: Ht 149.9 cm; Wt 71.0 kg
[2017-01-26 21:39] VITALS: BP 132/69; PULSE 78; RESP 18
[2017-01-26] MEDS ORDERED: LIDOCAINE 1% (MPF) 30 ML INJ INJ PRN (22:30)
[2017-01-26] MEDS ORDERED: LACTATED RINGER'S 1,000 ML IV PRN (22:30)
[2017-01-26] MEDS ORDERED: METHYLERGONOVINE 0.2 MG INJ IM PRN (22:30)
[2017-01-26] MEDS ORDERED: CARBOPROST 250 MCG INJ IM PRN (22:30)
[2017-01-26] MEDS ORDERED: MISOPROSTOL 25 MCG CAPSULE PO SCH (22:30)
[2017-01-26] MEDS ORDERED: IBUPROFEN 600 MG TAB PO PRN (22:30)
[2017-01-26] MEDS ORDERED: MISOPROSTOL 200 MCG TAB PR PRN (22:30)
[2017-01-26] MEDS ORDERED: OXYTOCIN 30 UNITS/LR 500 ML IV SCH (22:30)
[2017-01-26] MEDS ORDERED: OXYTOCIN 30 UNITS/LR 500 ML IV PRN (22:30)
--- NOTE | 2017-01-26 22:52 | RADRPT ---
PROCEDURE: US biophysical profile. CLINICAL INDICATION: Concern for leaking. well-being. TECHNIQUE: Multiple sonographic images of the uterus were obtained. The images were revi ewed on a PACS workstation. COMPARISON: 01/15/2017. FINDINGS: There is a single live intrauterine gestation. heart rate is 156 beats per minute. The position is cephalic. The placenta is right lateral, grade 2. The LIN is 11.9 cm. Breathing Movement: 2 Gross Body Movement: 2 Tone: 2 Qualitative Amniotic Fluid Volume: 2 TOTAL: 8 IMPRESSION: 1. Single viable intrauterine gestation. 2. Biophysical profile = 07/07. 3. LIN = 11.9 cm. RPTAT: HFN .Yeni Reyes MD, MD Date Time Electronically viewed and signed by .Yeni Reyes MD, MD on 01/26/2017 22:52 .N/
[2017-01-26 23:12] LABS: ADD SCAN DIFF NO
[2017-01-26] MEDS: LACTATED RINGER'S 1,000 ML IV SCH (23:17)
[2017-01-26 23:23] LABS: BASOPHILS % 0.4 % (0.0-2.0); EOSINOPHILS % 0.3 % (0.0-7.0); HEMATOCRIT 35.9 % (37.0-47.0); HEMOGLOBIN 12.2 g/dl (12.0-16.0); LYMPHOCYTES % 20.5 % (15.0-51.0); MEAN CORPUSCULAR HEMOGLOBIN 31.2 pg (29.0-33.0); MEAN CORPUSCULAR VOLUME 91.8 fl (82.0-101.0); MEAN PLATELET VOLUME 9.4 fl (7.4-10.4); MONOCYTE # 0.7 10^3/ul (0.3-0.9); MONOCYTES % 7.5 % (0.0-11.0); NEUTROPHIL # 6.6 10^3/ul (1.6-7.5); NEUTROPHILS % 69.1 % (39.0-77.0); PLATELET COUNT 277 10^3/UL (140-415); RED BLOOD COUNT 3.91 10^6/ul (4.20-5.40); RED CELL DISTRIBUTION WIDTH 14.1 % (11.5-14.5); WHITE BLOOD COUNT 9.5 10^3/ul (4.8-10.8)
[2017-01-26 23:30] LABS: INR 0.95; PROTIME 12.7 Sec (12.2-14.2)
[2017-01-26 23:31] LABS: PARTIAL THROMBOPLASTIN TIME 27.9 Sec (25.0-35.0)
--- NOTE | 2017-01-27 03:00 | HP ---
Date/Time of Note Date/Time of Note DATE: 01/27/17 TIME: 02:51 OB - History Hx of Present Free Text/Dictation 22 Year-old G1 with SIUP at 40 5/7 wks presents with a chief complaint of irregular uterine contractions. She has been receiving her care with [facility]/Dr. Carmen. She states good movement. She denies nausea, vomiting , shortness of breath, chest pain, and abdominal pain between contractions, headache, visual changes, vaginal bleeding or LOF. Her BPs were 142/90 x2 during her last two visit at [facility], referred to [facility] at that time which had nml BPs here. Chief Complaint: irregular uterine contractions Estimated Due Date: Jan 21, 2017 : 1 Care: Good Care Ultrasounds: Normal mid trimester US Obstetrical Complications: None Medical Complications: None Past Family/Social History * Past Medical, Surgical, Family and Obstetric Histories reviewed from chart. OB Admission Exam Vital Signs Vital Signs Vital Signs Date Time Temp Pulse Resp B/P Pulse Ox O2 Delivery O2 Flow Rate FiO2 01/26/17 21:39 98.2 78 18 132/69 Room Air Physical Exam HEENT: WNL Lungs: Clear Abdomen: WNL Extremities: Normal Cervical Dilatation: None Effacement: 0% Station: -3 Membranes: Intact Heart Rate: 140's Accelerations: Accelerations Present Decelerations: No Decelerations Varibility: Moderate Contractions on Admission: 6-10 Minutes Apart Intensity: Mild Last 72 hours Lab Results CBC & BMP 01/26/17 22:54 OB Assessment/Plan Other plan: 22 Year-old G1 with GHTN at 40 5/7 wks - FHR: No sign of metabolic acidosis- Category I - Continious EFM, toco - CBC, blood type and screen - Analgesia options with R/B/A discussed in detail with patient - Epidural per patient request - Please see the orders - O+/Rubella: Immune/GBS negative/HBS ag: neg Admission, procedures, expectations, risks and possible complications have been discussed in detail with the patient. Risk of vaginal delivery including but not limited to bleeding, infection, cervical laceration, placental retention, injury to fetus, blood transfusion, blood transfusion related infection, risk of anesthesia, adhesion, cervical laceration, episiotomy/laceration, possible delivery with risk of bleeding, infection, injury to other organs ( bowel, bladder, ureter, vessels, nerves), injury to fetus, blood transfusion, blood transfusion related infection, risk of anesthesia, scar and hernia formation, needs for future , removal of uterus or any other indicated surgery discussed with the patient. She expressed understanding and repeats the risks. All of her questions were answered; all appropriate consents will be signed. PHYSICIAN'S VERIFICATION OF INFORMED CONSENT: The patient was counseled regarding the procedure, its indications, risks, potential complications and alternatives and any questions were answered. Consent was obtained. PLANNED PROCEDURE/TREATMENT: Vaginal delivery with possible vacuum/forceps delivery episiotomy, repair of laceration possible delivery PHYSICIAN'S VERIFICATION OF INFORMED CONSENT FOR BLOOD TRANSFUSION: There is a reasonable possibility that blood transfusion will be necessary as a result of the patient's procedure. I have discussed the following with the patient/patient's legal players club representative: An explanation of the benefits and risks of the transfusion of blood or blood products and the possible alternatives. Al questions have been answered to the patient's/patients legal representatives satisfaction. INFORMED CONSENT: The patient has been informed of: - The nature of the proposed care, treatment, services, medic- Potential benefits, risks or side effects, including potential problems related to recuperation. - The likelihood of achieving care treatment and service goals. - Reasonable alternatives to the proposed care, treatment and service. - The relevant risks, benefits and side effects related to alternatives, including the possible results of not receiving care, treatment and services. - When indicated, any limitations on the confidentiality of information learned from or about the patient. - If appropriate, the risks, benefits and alternatives of the drugs to be used for sedation/analgesia including moderate sedation. - If appropriate, patient has been provided information on the risks, benefits and alternatives to the transfusion of blood and/or blood products. MICHAEL MICHELE Jan 27, 2017 03:00
[2017-01-27] MEDS: MISOPROSTOL 25 MCG CAPSULE PO SCH ×5 (03:26→21:00)
--- NOTE | 2017-01-27 03:44 | TRIAGE ---
OB Triage Datetime Report Generated by CPN: 01/27/2017 03:44 Datetime: 01/27/2017 02:00 Labor Evaluation Frequency: 4-5 Monitor Mode: External Duration (sec)2399: 90-110 Quality: Mild Pattern: Normal: <= 5 Contractions in 10 Minutes Resting Tone [place]: Relaxed Heart Rate FHR Baseline Rate: 145 Monitor Mode: External US FHR Baseline Changes: No Baseline Change Variability: Moderate 6-25 bpm Accelerations: 15X15 Decelerations: None Category: Category I Datetime: 01/27/2017 01:00 Labor Evaluation Frequency: 4-5 Monitor Mode: External Duration (sec)2399: 100-130 Quality: Mild Pattern: Normal: <= 5 Contractions in 10 Minutes Resting Tone [place]: Relaxed Heart Rate FHR Baseline Rate: 130 Monitor Mode: External US FHR Baseline Changes: No Baseline Change Variability: Moderate 6-25 bpm Accelerations: 15X15 Decelerations: None Category: Category I Datetime: 01/27/2017 00:00 Labor Evaluation Frequency: irregular Monitor Mode: External Quality: Mild Pattern: Normal: <= 5 Contractions in 10 Minutes Resting Tone [place]: Relaxed Heart Rate FHR Baseline Rate: 135 Monitor Mode: External US FHR Baseline Changes: No Baseline Change Variability: Moderate 6-25 bpm Accelerations: 15X15 Decelerations: None Category: Category I Datetime: 01/26/2017 23:47 Temperature Route: Oral Datetime: 01/26/2017 23:20 Fall Risk Assessment History of Falling: (0) No Secondary Diagnosis: (0) No Ambulatory Aid: (0) Bedrest/Nurse Assist IV Therapy: (20) Yes Gait: (0) Normal/Bedrest/Immobile Mental Status: (0) Oriented to Own Ability Fall Score: 20 Fall Risk Score Definition: No Risk: No action required Datetime: 01/26/2017 23:00 Labor Evaluation Frequency: 2-4 Monitor Mode: External Duration (sec)2399: 60-100 Quality: Mild Pattern: Normal: <= 5 Contractions in 10 Minutes Resting Tone [place]: Relaxed Heart Rate FHR Baseline Rate: 135 Monitor Mode: External US FHR Baseline Changes: No Baseline Change Variability: Moderate 6-25 bpm Accelerations: 15X15 Decelerations: None Category: Category I Datetime: 01/26/2017 22:18 Time of Arrival: 01/26/2017 22:15 EGA: 40.5 Arrived By: Ambulatory Arrived From: Home Datetime: 01/26/2017 22:00 Stage of : OB Triage Labor Evaluation Frequency: 4-7 Monitor Mode: External Duration (sec)2399: 50-90 Quality: Mild Pattern: Normal: <= 5 Contractions in 10 Minutes Resting Tone [place]: Relaxed Heart Rate FHR Baseline Rate: 150 Monitor Mode: External US Variability: Moderate 6-25 bpm Accelerations: 15X15 Decelerations: Variable Category: Category II Datetime: 01/26/2017 21:54 Vaginal Exam Dilatation (cms): 0.0 Effacement (%): 60 Station: -2 Exam By: CHUCKY Vega Vaginal Bleeding: None Cervix, Consistency: Firm Cervix, Position: Posterior Datetime: 01/26/2017 21:37 Stage of : OB Triage Assessment Type: Triage Maternal Assessment Level of Consciousness: Fully Conscious DTR's/Clonus: DTRs 2+; No Clonus Headache: Denies Blurred Vision: No Respiratory Effort: Unlabored; Regular Rhythm; Equal Expansion Breath Sounds, Left: Clear and Equal Breath Sounds, Right: Clear and Equal Nausea/Vomiting: Denies RUQ Epigastric Pain: Denies Facial Edema: None Temperature Route: Oral Fall Risk Assessment History of Falling: (0) No Secondary Diagnosis: (0) No Ambulatory Aid: (0) Bedrest/Nurse Assist IV Therapy: (0) No Gait: (0) Normal/Bedrest/Immobile Mental Status: (0) Oriented to Own Ability Fall Score: 0 Fall Risk Score Definition: No Risk: No action required Pain Assessment Pain Scale: 6 Pain Presence: Intermittent Pain Type: Cramping; Contraction Pain Location: Abdomen; Back Pain Relief Measures: Comfort Measures Datetime: 01/26/2017 21:35 Monitor Mode: External Contraction Comments: [place] applied Monitor Mode: External US Comments: EFM applied Datetime: 01/26/2017 21:34 Time of Arrival: 01/26/2017 21:11 EGA: 40.5 Arrived By: Wheelchair Arrived From: Home Chief Complaint: UCs [id number] Lost mucus plug this am Movement: Present Contractions: Regular Time Contractions Began: 01/26/2017 20:00 Contractions: [id number] Rupture of Membranes: Unsure Vaginal Bleeding: None Vaginal Discharge: Present Abdominal Trauma: Not Applicable Patient Complaints: Contractions; Cramping; Back Pain Additional Patient Complaints: Pt reports hx elevated BPs - goes to NST 2x/wk Time Provider Notified: 01/26/2017 22:00 Provider Notified: Initial Plan: EFM x2, SVE Datetime: 01/20/2017 22:20 Stage of : OB Triage Datetime: 01/20/2017 20:41 EGA: 39.6 Datetime: 01/15/2017 20:41 Fall Score: 0 Fall Risk Score Definition: No Risk: No action required Datetime: 01/15/2017 10:31 Fall Score: 0 Fall Risk Score Definition: No Risk: No action required Datetime: 01/15/2017 10:29 EGA: 39.1 Datetime: 01/14/2017 17:39 Fall Score: 0 Fall Risk Score Definition: No Risk: No action required Datetime: 01/14/2017 17:37 EGA: 39.0 Datetime: 12/23/2016 20:40 Fall Score: 0 Fall Risk Score Definition: No Risk: No action required Datetime: 12/23/2016 20:15 EGA: 35.6 Datetime: 12/16/2016 19:59 EGA: 34.6 Datetime: 12/16/2016 19:39 Fall Score: 0 Fall Risk Score Definition: No Risk: No action required
[2017-01-27] MEDS: LACTATED RINGER'S 1,000 ML IV SCH ×4 (04:03→17:35)
[2017-01-27] MEDS: BUTORPHANOL 2 MG INJ IV PRN ×2 (07:34→17:47)
--- NOTE | 2017-01-27 10:50 | RADRPT ---
PROCEDURE: US OB CLINICAL INDICATION: 41wks TECHNIQUE: Multiple sonographic images of the pelvis were obtained. The images were reviewed on a PACS workstation. COMPARISON: Obstetrical ultrasound from 01/26/2017 FINDINGS: The cervix is not well visualized. There is a single viable intrauterine gestation. Cardiac activity is present with 0.24 beats per minute. There is a vertex presentation. The placenta is posterior. There is no evidence for an abruption or placenta previa. There is a subjectively normal amount of amniotic fluid. Measurements were made in order to determine age. The results are as follows (cm): BPD =9.21 HC =32.59 AC =33.50 FL =7.06 Estimated gestational age by ultrasound of approximately 37 weeks, 0 days. The estimated date of delivery by ultrasound is 02/17/2017. Reported gestational age by LMP of approximately 40 weeks, 6 days. The reported date of delivery by LMP was 01/21/2017. EFW = 3107 grams (8th percentile) IMPRESSION: Single viable intrauterine gestation of approximately 37 weeks, 0 days . The estimated date of delivery is 02/17/2017 . Dating by ultrasound is not consistent with dating by LMP, as above. Estimated weight in the 8th percentile. Cephalic presentation. RPTAT: EE Physician Bridger Date Time Electronically viewed and signed by Physician Bridger on 01/27/2017 10:50 /
--- NOTE | 2017-01-27 21:22 | DS ---
Date/Time of Note Date/Time of Note DATE: 01/27/17 TIME: 21:16 Obstetrical Discharge Record Final Diagnosis Final Diagnosis: Term not delivered Other Final Diagnosis Normotensive. Complications Other (Normotensive. Not in labor.) Augmentation: No Induction: No Condition on Discharge Physical Assessment Last Vitals: T=98.2. BP 120/65. Pt was not examined by me. Was seen/evaluated by Dr Kennedy and then admitted for observation only, possible induction, but then pt decided to go home and return for follow-up to allow for labor. I have no recollection of seeing her or evaluating the tracing, but my name is on the discharge order. Voiding: Yes Bowel Movement: Yes Fundus: Other (Soft, NT, gravid, per Dr Kennedy.) Abdomen and Incision: N/A Episiotomy: N/A Calf Tenderness: No Patient Condition: ANTONINO Snyder MD Jan 27, 2017 21:22
[2017-01-27] MEDS ORDERED: LACTATED RINGER'S 1,000 ML IV ONE (22:18)
[2017-01-27] MEDS ORDERED: ONDANSETRON 4 MG INJ IV PRN (22:30)
[2017-01-27] MEDS ORDERED: NALOXONE (0.4 MG/ML) INJ IV PRN (22:30)
[2017-01-27] MEDS ORDERED: ONDANSETRON 4 MG INJ IV ONE (22:30)
[2017-01-27] MEDS ORDERED: CITRIC ACID/NA CITRATE 30 ML CUP PO ONE (22:30)
[2017-01-27] MEDS ORDERED: PROCHLORPERAZINE 10 MG INJ IV PRN (22:30)
[2017-01-27] MEDS ORDERED: DIPHENHYDRAMINE 50 MG INJ IV PRN (22:30)
[2017-01-27] MEDS ORDERED: KETOROLAC 30 MG INJ IV PRN (22:30)
[2017-01-27] MEDS ORDERED: OXYTOCIN 30 UNITS/LR 500 ML IV SCH (22:30)
[2017-01-27] MEDS ORDERED: morphine 2 MG INJ IV PRN ×2 (22:30)
[2017-01-28] MEDS: MISOPROSTOL 25 MCG CAPSULE PO SCH (01:00)
[2017-01-28] MEDS: FENTAnyl 2MCG/ML-ROPIV 0.2% 100 ML BAG EPI SCH ×3 (06:48→19:17)
[2017-01-28] MEDS: LACTATED RINGER'S 1,000 ML IV SCH ×3 (06:50→20:25)
[2017-01-28] MEDS ORDERED: AMPICILLIN 2 GM/NS (PMX) 100 ML ONE (23:30)
[2017-01-28] MEDS ORDERED: AMPICILLIN 2 GM/NS (PMX) 100 ML IV ONE (23:30)
[2017-01-28] MEDS ORDERED: ACETAMINOPHEN 325 MG TAB PO PRN (23:30)
[2017-01-29] MEDS: FENTAnyl 2MCG/ML-ROPIV 0.2% 100 ML BAG EPI SCH ×2 (00:35→07:26)
[2017-01-29] MEDS: GENTAMICIN 80 MG/NS (PMX) 50 ML IVPB SCH ×3 (00:35→17:05)
[2017-01-29] MEDS: LACTATED RINGER'S 1,000 ML IV SCH ×2 (02:40→08:04)
[2017-01-29] MEDS: AMPICILLIN 1 GM/NS (PMX) 50 ML IV SCH ×4 (07:00→23:38)
[2017-01-29] MEDS ORDERED: CEFAZOLIN 2 GM/50 ML (PMX) 50 ML IVPB ONE (09:00)
[2017-01-29 09:03] LABS: ADD SCAN DIFF NO
[2017-01-29 09:06] LABS: ABNORMAL IP MESSAGE 1; BASOPHILS % 0.2 % (0.0-2.0); HEMATOCRIT 34.7 % (37.0-47.0); HEMOGLOBIN 11.7 g/dl (12.0-16.0); LYMPHOCYTES # 1.2 10^3/ul (0.8-2.9); LYMPHOCYTES % 5.5 % (15.0-51.0); MEAN CORPUSCULAR HEMOGLOBIN 31.8 pg (29.0-33.0); MEAN CORPUSCULAR HGB CONC 33.7 g/dl (32.0-37.0); MEAN CORPUSCULAR VOLUME 94.3 fl (82.0-101.0); MEAN PLATELET VOLUME 9.2 fl (7.4-10.4); MONOCYTE # 1.8 10^3/ul (0.3-0.9); MONOCYTES % 8.3 % (0.0-11.0); NEUTROPHIL # 18.4 10^3/ul (1.6-7.5); NEUTROPHILS % 84.7 % (39.0-77.0); PLATELET COUNT 235 10^3/UL (140-415); RED BLOOD COUNT 3.68 10^6/ul (4.20-5.40); RED CELL DISTRIBUTION WIDTH 14.5 % (11.5-14.5); WHITE BLOOD COUNT 21.8 10^3/ul (4.8-10.8)
[2017-01-29 09:17] LABS: INR 0.97; PROTIME 12.9 Sec (12.2-14.2)
[2017-01-29 09:18] LABS: PARTIAL THROMBOPLASTIN TIME 28.8 Sec (25.0-35.0)
[2017-01-29] MEDS ORDERED: CITRIC ACID/NA CITRATE 30 ML CUP ONE (09:38)
[2017-01-29] MEDS ORDERED: LIDOCAINE 2%/EPI 30 ML INJ ONE (10:23)
[2017-01-29] MEDS ORDERED: PROPOFOL 20 ML ONE ×2 (10:24→11:04)
[2017-01-29] MEDS ORDERED: morphine SULFATE/PF (10 MG/10 ML) INJ ONE (10:24)
[2017-01-29] MEDS ORDERED: ONDANSETRON 4 MG INJ ONE (10:24)
[2017-01-29] MEDS ORDERED: KETOROLAC 30 MG INJ ONE (10:25)
[2017-01-29] MEDS ORDERED: FENTAnyl 50 MCG/ML VIAL ONE (10:48)
[2017-01-29] MEDS ORDERED: HYDROmorphONE (0.2 MG/ML) 10ML SYG IV PRN ×3 (11:30)
[2017-01-29] MEDS ORDERED: METOCLOPRAMIDE 10 MG INJ IV PRN (11:30)
[2017-01-29] MEDS ORDERED: MEPERIDINE 25 MG INJ IV PRN (11:30)
[2017-01-29] MEDS ORDERED: ONDANSETRON 4 MG INJ IV PRN ×2 (11:30)
[2017-01-29] MEDS ORDERED: DIPHENHYDRAMINE 50 MG INJ IV PRN ×2 (11:30)
[2017-01-29] MEDS ORDERED: HYDROmorphONE 1 MG/ML SYG IV PRN ×3 (11:30)
[2017-01-29] MEDS ORDERED: NALOXONE (0.4 MG/ML) INJ IV PRN (11:30)
--- NOTE | 2017-01-29 12:00 | OPR ---
DATE OF OPERATION: 01/29/2017 PREOPERATIVE DIAGNOSES: 1. Intrauterine at 41 weeks 2 days' gestation. 2. Meconium stained amniotic fluid. 3. The patient declined further trial of labor, requested a delivery. POSTOPERATIVE DIAGNOSES 1. Intrauterine at 41 weeks 2 days' gestation. 2. Meconium stained amniotic fluid. 3. The patient declined further trial of labor, requested a delivery. PROCEDURE: Primary transverse low cervical section. SURGEON: Jose Carlos Carmen MD [employer]TERY CHARGER: Dr. Yanira Kennedy. ANESTHESIA: Epidural. ANESTHESIOLOGIST: Dr. Awad. FINDINGS: Live baby boy, 8 and 9, with meconium stained cord and amniotic fluid. DETAILS OF THE PROCEDURE: Under satisfactory spinal anesthesia, the patient was prepped and draped and placed in supine position, tilted to the left. Pfannenstiel incision was made, carried through the subcutaneous tissue. Bleeders brought under control with electrocautery. Fascia incised to the length of the incision. Rectus muscle divided in midline. Peritoneum exposed, entered through a t ransverse incision. Exploration of abdomen. Gravid uterus, normal appearing tubes and ovaries, and evidence of labor with amount of the peritoneal fluid. Bladder flap was developed. Transver se incision was made in the lower segment of the uterus. Amniotic sac ruptured. Thick meconium sta ined amniotic fluid noted. Live baby boy was delivered from unengaged vertex with a nuchal cord tight around the baby's neck. Nasal oropharyngeal suction was performed. Baby handed to the team for immediate attention . Patient received 20 units of Pitocin. Placenta delivered manually inspected. It was complete, b ut meconium stained and sent to pathology. Uterine cavity cleaned with wet sponge and drainage esta blished. Uterus closed in 2 layers using Monocryl #1 in continuous fashion. Peritoneal cavity irri gated with copious amount of sterile water. Sponge, needle and instrument reported to be correct. Abdominal peritoneum closed with 2-0 chromic catgut continuously. Rectus muscle approximated with 2 interrupted 2-0 chromic catgut. Fascia closed with #1 PDS in a continuous fashion. Subcutaneous t issue approximated with 2-0 chromic catgut and the skin closed with danna. Estimated blood loss 6 00 mL to 700 mL. Urine bag contained 200 mL of clear urine. The patient tolerated procedure well, transferred to recovery room in a good condition. Dictated By: JOSE CARLOS STAHL/DANIEL Conf#: [id number] DID#: [id number]
--- NOTE | 2017-01-29 12:13 | HP ---
DATE OF ADMISSION: 01/26/2017 HISTORY OF PRESENT ILLNESS: This is a 22-year-old female, 1, para 0, with an EDC o f 01/21/2017, admitted to [facility] at 41 weeks and 1 day on 01/26/2017 at 2200 i n labor. Admission pelvic examination: Cervical dilatation at 3 cm, 90% effaced, vertex at -2 station. The p atient admitted into the labor and delivery room for labor. During the course of labor the patient had a spontaneous rupture of membrane at 1421 on the , which at the beginning it seemed to be cl ear, but later on turned to the meconium stained color. Patient also had some low grade fever and e levated WBC, which was placed on the gentamicin and ampicillin by the laborist relocation director. She continu ed to labor; however, did not progress further than 4 to 5 cm and the patient declined further trial of labor with the suggestion of amniofusion due to the meconium stained amniotic fluid, requested a section delivery, mostly by the recommendation and suggestion of her mother. Pros and con s regarding the and complication may arise from this procedure was discussed with the red ent and she would like to proceed with the operative delivery. She is being prepared for the above- mentioned surgery. This patient has been under the care of the [facility], and her course was not complicated with gestational diabetes, -induced hypertensi on, or any other serious medical or surgical condition. GYNECOLOGIC HISTORY: Menarche at age 11, regular period every 28 days, lasting 4 or 5 days. PAST MEDICAL HISTORY: No history of hospitalization for any surgical or medical condition. ALLERGIES: DENIES ALLERGIES TO ANY KNOWN MEDICATION. SOCIAL HISTORY: Denies smoking or drinking. FAMILY HISTORY: Negative for diabetes or hypertension or any other history of familial disease. REVIEW OF SYSTEMS: Within normal. PHYSICAL EXAMINATION: VITAL SIGNS: Temperature 99, pulse 102, respirations 16, blood pressure 151/88. HEAD, EARS, NOSE AND THROAT: Negative. NECK: Supple. No thyromegaly. LUNGS: Clear to P and A. HEART: Normal sinus rhythm, slightly tachycardic, no murmur. ABDOMEN: Fundal height measures 37 cm from symphysis pubis with a heart rate category 1, cont raction every 3 to 4 minutes. PELVIC: Cervical dilatation for 4 to 5 cm, 100% effaced, vertex at -2 station. It was noted during the examination, the patient has sharp angled pubic arch. EXTREMITIES: No edema, no varicosities. IMPRESSION: 1. Intrauterine at 41 weeks plus gestation. 2. Meconium stained amniotic fluid. Patient declined further trial of labor, requests for section delivery. Complication of th e , including bowel or bladder injury, infection, hemorrhage, hematoma, wound infection dis cussed and the patient is willing to go ahead with this procedure. Dictated By: JOSE CARLOS TERRELL MD HF/NTS Conf#: [id number] DID#: [id number]
[2017-01-29] MEDS: OXYTOCIN 30 UNITS/LR 500 ML IV SCH ×4 (12:23→21:58)
[2017-01-29 16:00] VITALS: BP 138/80; PULSE 106; RESP 20
[2017-01-29] MEDS ORDERED: MISOPROSTOL 200 MCG TAB PR PRN (17:00)
[2017-01-29] MEDS ORDERED: ACETAMINOPHEN/CODEINE #3 TAB PO PRN ×2 (17:00)
[2017-01-29] MEDS ORDERED: METHYLERGONOVINE 0.2 MG INJ IM PRN (17:00)
[2017-01-29] MEDS ORDERED: LANOLIN 7 GM TUBE TOP PRN (17:00)
[2017-01-29] MEDS ORDERED: OXYCODONE/ACETAMINOPHEN (5/325) TAB PO PRN (17:00)
[2017-01-29] MEDS ORDERED: CEFAZOLIN 1 GM/50 ML (PMX) 50 ML IVPB SCH (17:00)
[2017-01-29] MEDS ORDERED: OXYTOCIN 30 UNITS/LR 500 ML IV PRN (17:00)
[2017-01-29] MEDS ORDERED: CARBOPROST 250 MCG INJ IM PRN (17:00)
[2017-01-29 18:00] VITALS: BP 138/84; PULSE 102; RESP 20
[2017-01-29] MEDS: IBUPROFEN 600 MG TAB PO SCH ×2 (18:00→23:40)
[2017-01-29 20:00] VITALS: BP 125/75; PULSE 104; RESP 18
[2017-01-30] VITALS: BP 118/72; PULSE 105; RESP 18
[2017-01-30] MEDS: GENTAMICIN 80 MG/NS (PMX) 50 ML IVPB SCH ×3 (00:16→16:47)
[2017-01-30] MEDS: KETOROLAC 30 MG INJ IV PRN ×2 (03:54→10:27)
[2017-01-30] MEDS: OXYTOCIN 30 UNITS/LR 500 ML IV SCH ×6 (03:58→20:56)
[2017-01-30 04:00] VITALS: BP 120/77; PULSE 104; PULSE 110; RESP 18
[2017-01-30] MEDS: LACTATED RINGER'S 1,000 ML IV SCH ×4 (04:30→20:30)
[2017-01-30] MEDS: AMPICILLIN 1 GM/NS (PMX) 50 ML IV SCH ×4 (05:35→23:45)
[2017-01-30] MEDS: IBUPROFEN 600 MG TAB PO SCH ×3 (05:59→17:25)
[2017-01-30 07:30] VITALS: BP 118/72; PULSE 75; RESP 18
[2017-01-30] MEDS: SENNA/DOCUSATE NA (8.6MG/50MG) TAB PO SCH ×2 (09:42→21:11)
[2017-01-30 09:46] LABS: ADD SCAN DIFF NO
[2017-01-30 09:50] LABS: BASOPHILS % 0.2 % (0.0-2.0); EOSINOPHILS % 0.1 % (0.0-7.0); HEMATOCRIT 30.8 % (37.0-47.0); LYMPHOCYTES # 1.8 10^3/ul (0.8-2.9); LYMPHOCYTES % 12.4 % (15.0-51.0); MEAN CORPUSCULAR HEMOGLOBIN 30.7 pg (29.0-33.0); MEAN CORPUSCULAR HGB CONC 32.5 g/dl (32.0-37.0); MEAN CORPUSCULAR VOLUME 94.5 fl (82.0-101.0); MEAN PLATELET VOLUME 9.5 fl (7.4-10.4); MONOCYTES % 6.9 % (0.0-11.0); NEUTROPHIL # 11.5 10^3/ul (1.6-7.5); NEUTROPHILS % 79.5 % (39.0-77.0); PLATELET COUNT 205 10^3/UL (140-415); RED BLOOD COUNT 3.26 10^6/ul (4.20-5.40); RED CELL DISTRIBUTION WIDTH 14.6 % (11.5-14.5); WHITE BLOOD COUNT 14.4 10^3/ul (4.8-10.8)
--- NOTE | 2017-01-30 10:31 | PN ---
Date/Time of Note Date/Time of Note DATE: 01/30/17 TIME: 10:30 OB Subjective Subjective Subjective Post day 1 Afebrile vital signs are stable, abdomen is uterus firm incision lochia moderate extremities normal Laboratory Tests Test 01/30/17 09:10 Basophils # 0.010^3/ul Basophils % 0.2% Eosinophils # 0.010^3/ul Eosinophils % 0.1% Hematocrit 30.8% Hemoglobin 10.0g/dl Lymphocytes # 1.810^3/ul Lymphocytes % 12.4% Mean Corpuscular Hemoglobin 30.7pg Mean Corpuscular Hemoglobin Concent 32.5g/dl Mean Corpuscular Volume 94.5fl Mean Platelet Volume 9.5fl Monocytes # 1.010^3/ul Monocytes % 6.9% Neutrophils # 11.510^3/ul Neutrophils % 79.5% Nucleated Red Blood Cells # 0.010^3/ul Nucleated Red Blood Cells % 0.0/100WBC Platelet Count 21268^3/UL Red Blood Count 3.2610^6/ul Red Cell Distribution Width 14.6% White Blood Count 14.410^3/ul Current Medications Medications (Trade) Dose Ordered Sig/Delon Route PRN Reason Start Time Stop Time Status Last Admin Dose Admin Lactated Ringer's (Lr) 1,000 ml @ 125 mls/hr Q8H IV 01/26/17 22:14 01/29/17 17:00 DC 01/29/17 08:04 Misoprostol (Cytotec 25 Mcg Capsule) 25 mcg Q4 PO 01/26/17 22:30 01/27/17 03:25 DC 01/26/17 23:18 Butorphanol Tartrate (Stadol) 2 mg Q2H PRN IV PAIN 01/26/17 22:30 01/29/17 17:00 DC 01/27/17 17:47 Lidocaine 30 ml 30 ml ONCE PRN INJ EPISIOTOMY/TEARING 01/26/17 22:30 01/29/17 17:00 DC Oxytocin/Lactated Ringer's 500 ml @ 125 mls/hr ONCE -MAY REPEAT X1 IV 01/26/17 22:30 01/29/17 17:00 DC Oxytocin/Lactated Ringer's 500 ml @ 125 mls/hr ONCE IV 01/26/17 22:30 01/29/17 17:00 DC 01/29/17 16:09 Ibuprofen 600 mg 600 mg ONCE PRN PO Mild Pain (Pain Score 1-3) 01/26/17 22:30 01/29/17 17:01 DC Lactated Ringer's 1,000 ml @ 2,000 mls/hr Q30M PRN IV PRE-EPIDURAL BOLUS 01/26/17 22:30 01/29/17 17:01 DC Oxytocin/Lactated Ringer's 500 ml @ 0 mls/hr ONCE PRN IV For Hemorrhage Management 01/26/17 22:30 01/29/17 17:01 DC Methylergonovine Maleate (Methergine) 0.2 mg ONCE PRN IM VAGINAL BLEEDING 01/26/17 22:30 01/29/17 17:01 DC Carboprost Tromethamine (Hemabate) 250 mcg ONCE PRN IM VAGINAL BLEEDING 01/26/17 22:30 01/29/17 17:01 DC Misoprostol (Cytotec) 1,000 mcg ONCE PRN [place] VAGINAL BLEEDING 01/26/17 22:30 01/29/17 17:01 DC Misoprostol 50 mcg 50 mcg Q4 PO 01/27/17 05:00 01/28/17 01:48 DC 01/27/17 15:18 Oxytocin/Lactated Ringer's 500 ml @ 0 mls/hr Q0M IV 01/27/17 22:30 01/29/17 17:00 DC 01/27/17 23:46 Lactated Ringer's (Lr) 1,000 ml @ 1,000 mls/hr Q1H ONCE IV 01/27/17 22:18 01/27/17 23:17 DC 01/27/17 22:36 Ondansetron HCl (Zofran Inj) 4 mg pre-procedure ONCE IV 01/27/17 22:30 01/27/17 22:31 DC 01/27/17 22:57 Citric Acid/ Sodium Citrate (Bicitra) 30 ml pre-procedure ONCE PO 01/27/17 22:30 01/27/17 22:31 DC 01/27/17 22:46 Naloxone HCl (Narcan) 0.1 mg Q2M PRN IV FOR RESP RATE 8 OR LESS 01/27/17 22:30 01/28/17 22:29 DC Ketorolac Tromethamine (Toradol) 30 mg Q6H PRN IV PAIN 01/27/17 22:30 01/28/17 22:29 DC Morphine Sulfate (morphine) 2 mg Q3H PRN IV PAIN LEVEL 1-5 01/27/17 22:30 01/28/17 22:29 DC Morphine Sulfate (morphine) 4 mg Q3H PRN IV PAIN LEVEL 6-10 01/27/17 22:30 01/28/17 22:29 DC Diphenhydramine HCl (Benadryl) 25 mg Q6H PRN IV ITCHING 01/27/17 22:30 01/28/17 22:29 DC Ondansetron HCl (Zofran Inj) 4 mg Q6H PRN IV NAUSEA AND/OR VOMITING 01/27/17 22:30 01/28/17 22:29 DC 01/28/17 19:19 Prochlorperazine (Compazine Inj) 10 mg ONCE PRN IV NAUSEA AND/OR VOMITING 01/27/17 22:30 01/28/17 22:29 DC Fentanyl/ Ropivacaine 100 ml EPIDURAL INFUSION EPI 01/27/17 22:30 01/29/17 17:00 DC 01/29/17 07:26 Acetaminophen 650 mg 650 mg Q4H PRN PO PAIN AND OR ELEVATED TEMP 01/28/17 23:30 01/29/17 17:00 DC 01/28/17 23:38 Ampicillin 100 ml @ 100 mls/hr ONCE ONCE IV 01/28/17 23:30 01/29/17 00:29 DC 01/28/17 23:36 Ampicillin 50 ml @ 100 mls/hr Q6H IV 01/29/17 06:00 01/30/17 05:35 Gentamicin Sulfate 50 ml @ 104 mls/hr Q8H IVPB 01/29/17 00:30 01/30/17 09:43 Ampicillin 100 ml @ ud STK-MED ONCE .ROUTE 01/28/17 23:30 01/28/17 23:31 DC Cefazolin Sodium/ Dextrose (Ancef 2 Gm/50 ml (Pmx)) 50 ml @ 100 mls/hr ONCE ONCE IVPB 01/29/17 09:00 01/29/17 17:51 DC Citric Acid/ Sodium Citrate (Bicitra) 30 ml STK-MED ONCE .ROUTE 01/29/17 09:38 01/29/17 09:39 DC Lidocaine/ Epinephrine 30 ml 30 ml STK-MED ONCE .ROUTE 01/29/17 10:23 01/29/17 10:24 DC Propofol (Diprivan) 20 ml @ ud STK-MED ONCE .ROUTE 01/29/17 10:24 01/29/17 10:25 DC Morphine Sulfate (Duramorph) 10 mg STK-MED ONCE .ROUTE 01/29/17 10:24 01/29/17 10:25 DC Ondansetron HCl (Zofran Inj) 4 mg STK-MED ONCE .ROUTE 01/29/17 10:24 01/29/17 10:25 DC Ketorolac Tromethamine (Toradol) 30 mg STK-MED ONCE .ROUTE 01/29/17 10:25 01/29/17 10:26 DC Fentanyl 100 mcg 100 mcg STK-MED ONCE .ROUTE 01/29/17 10:48 01/29/17 10:49 DC Propofol (Diprivan) 20 ml @ ud STK-MED ONCE .ROUTE 01/29/17 11:04 01/29/17 11:05 DC Hydromorphone HCl (Dilaudid (Rec)) 0.2 mg PACU ORDER PRN IV MILD PAIN LEVEL 1-3 01/29/17 11:30 01/29/17 15:30 DC Hydromorphone HCl (Dilaudid (Rec)) 0.4 mg PACU ORDER PRN IV MODERATE PAIN LEVEL 4-6 01/29/17 11:30 01/29/17 15:30 DC Hydromorphone HCl (Dilaudid (Rec)) 0.6 mg PACU ORDER PRN IV SEVERE PAIN LEVEL 7-10 01/29/17 11:30 01/29/17 15:30 DC Ondansetron HCl (Zofran Inj) 4 mg PACU ORDER PRN IV NAUSEA AND/OR VOMITING 01/29/17 11:30 01/29/17 15:30 DC Metoclopramide HCl (Reglan) 10 mg PACU ORDER PRN IV NAUSEA AND/OR VOMITING 01/29/17 11:30 01/29/17 15:30 DC Meperidine HCl (Demerol) 25 mg PACU ORDER PRN IV POST-OP RIGORS 01/29/17 11:30 01/29/17 15:30 DC Diphenhydramine HCl (Benadryl) 25 mg PACU ORDER PRN IV PRURITUS 01/29/17 11:30 01/29/17 15:30 DC Naloxone HCl (Narcan) 0.1 mg Q2M PRN IV FOR RESP RATE 8 OR LESS 01/29/17 11:30 01/30/17 11:29 Ketorolac Tromethamine (Toradol) 30 mg Q6H PRN IV PAIN 01/29/17 11:30 01/30/17 11:29 01/30/17 10:27 Hydromorphone HCl (Dilaudid) 1 mg Q3H PRN IV BREAKTHROUGH PAIN 01/29/17 11:30 01/30/17 11:29 Hydromorphone HCl (Dilaudid) 0.2 mg Q3H PRN IV PAIN LEVEL 1-5 01/29/17 11:30 01/30/17 11:29 Hydromorphone HCl (Dilaudid) 0.4 mg Q3H PRN IV PAIN LEVEL 6-10 01/29/17 11:30 01/30/17 11:29 Diphenhydramine HCl (Benadryl) 25 mg Q6H PRN IV ITCHING 01/29/17 11:30 01/30/17 11:29 Ondansetron HCl (Zofran Inj) 4 mg Q6H PRN IV NAUSEA AND/OR VOMITING 01/29/17 11:30 01/30/17 11:29 Acetaminophen/ Codeine Phosphate (Tylenol No.3) 1 tab Q4H PRN PO PAIN LEVEL 4-6 01/29/17 17:00 Acetaminophen/ Codeine Phosphate (Tylenol No.3) 2 tab Q4H PRN PO PAIN LEVEL 7-10 01/29/17 17:00 Oxycodone/ Acetaminophen (Percocet (5/ 325)) 1 tab Q4H PRN PO PAIN LEVEL 4-6 01/29/17 17:00 Oxycodone/ Acetaminophen (Percocet (5/ 325)) 2 tab Q4H PRN PO PAIN LEVEL 7-10 01/29/17 17:00 Ibuprofen (Motrin) 600 mg Q6 PO 01/29/17 18:00 Simethicone (Mylicon) 160 mg Q8H PRN PO DISTENSION/GAS/BLOATING 01/29/17 17:00 Senna/Docusate Sodium (Senokot-S) 1 tab BID PO 01/30/17 09:00 01/30/17 09:42 Lanolin (Yzn-[id number]-Kljvuh) 1 applic BEDSIDE MEDICATION PRN TOP BEDSIDE FOR ANNEMARIE TO NIPPLES 01/29/17 17:00 Diphtheria/ Tetanus/Acell Pertussis 0.5 ml 0.5 ml ONCE ONCE IM* 02/01/17 09:00 02/01/17 09:01 Oxytocin/Lactated Ringer's 500 ml @ 0 mls/hr ONCE PRN IV For Hemorrhage Management 01/29/17 17:00 Methylergonovine Maleate (Methergine) 0.2 mg ONCE PRN IM VAGINAL BLEEDING 01/29/17 17:00 Carboprost Tromethamine (Hemabate) 250 mcg ONCE PRN IM VAGINAL BLEEDING 01/29/17 17:00 Misoprostol 1000 mcg 1,000 mcg ONCE PRN [place] VAGINAL BLEEDING 01/29/17 17:00 Cefazolin Sodium 50 ml @ 100 mls/hr ONCE IVPB 01/29/17 17:00 01/29/17 17:29 DC Oxytocin/Lactated Ringer's 500 ml @ 125 mls/hr Q4H IV 01/29/17 16:56 01/30/17 03:58 Lactated Ringer's (Lr) 1,000 ml @ 125 mls/hr Q8H IV 01/30/17 04:30 01/30/17 10:27 JOSE CARLOS TERRELL MD Jan 30, 2017 10:31
--- NOTE | 2017-01-30 10:34 | PN ---
Date/Time of Note Date/Time of Note DATE: 01/30/17 TIME: 10:32 OB Subjective Subjective Subjective Afebrile, WBC down from yesterday to 14,000, currently on gentamicin and ampicillin will continue antibiotic until a.m.. Abdomen is soft bowel sounds present no signs of inflammation on the area of incision lochia moderate extremity normal JOSE CARLOS TERRELL MD Jan 30, 2017 10:34
[2017-01-30 11:44] VITALS: BP 115/68; PULSE 73; RESP 18
[2017-01-30 16:00] VITALS: BP 115/79; PULSE 87; RESP 19
[2017-01-30 19:30] VITALS: BP 113/75; PULSE 89; RESP 19
[2017-01-30] MEDS: OXYCODONE/ACETAMINOPHEN (5/325) TAB PO PRN (21:48)
[2017-01-31] MEDS: GENTAMICIN 80 MG/NS (PMX) 50 ML IVPB SCH ×2 (00:24→08:03)
[2017-01-31] MEDS: OXYTOCIN 30 UNITS/LR 500 ML IV SCH ×2 (00:56→04:56)
[2017-01-31 04:00] VITALS: BP 124/80; PULSE 66; RESP 19
[2017-01-31] MEDS: LACTATED RINGER'S 1,000 ML IV SCH (04:30)
[2017-01-31] MEDS: AMPICILLIN 1 GM/NS (PMX) 50 ML IV SCH (05:33)
[2017-01-31] MEDS: IBUPROFEN 600 MG TAB PO SCH ×5 (05:33→23:22)
[2017-01-31 08:00] VITALS: BP 103/60; PULSE 89; RESP 18
[2017-01-31] MEDS: OXYCODONE/ACETAMINOPHEN (5/325) TAB PO PRN ×2 (08:02→19:29)
--- NOTE | 2017-01-31 09:43 | PN ---
Date/Time of Note Date/Time of Note DATE: 01/31/17 TIME: 09:41 OB Subjective Subjective Subjective Postoperative day 2 VS stable, afebrile no temperature the last 2 days, abdomen soft uterus firm incision dry bowel sounds present no bowel movement ,ambulation recommended JOSE CARLOS TERRELL MD Jan 31, 2017 09:43
[2017-01-31] MEDS: SENNA/DOCUSATE NA (8.6MG/50MG) TAB PO SCH ×2 (09:44→21:18)
[2017-01-31] MEDS ORDERED: NA PHOSPHATE/BIPHOS 133 ML ENEMA PR ONE (10:00)
[2017-01-31 16:02] VITALS: BP 112/71; PULSE 84; RESP 18
[2017-01-31 20:05] VITALS: BP 126/74; PULSE 90; RESP 20
[2017-02-01 04:29] VITALS: BP 117/70; PULSE 81; RESP 20
[2017-02-01] MEDS: IBUPROFEN 600 MG TAB PO SCH ×3 (06:12→17:27)
[2017-02-01 08:00] VITALS: BP 114/66; PULSE 82; RESP 18
[2017-02-01] MEDS ORDERED: DIPHTH/TET/ACEL PERTUSS (ADULT) 0.5 ML VIAL IM* ONE (09:00)
[2017-02-01] MEDS: SENNA/DOCUSATE NA (8.6MG/50MG) TAB PO SCH (09:32)
[2017-02-01] MEDS: OXYCODONE/ACETAMINOPHEN (5/325) TAB PO PRN (14:44)
--- NOTE | 2017-02-01 15:56 | PD.PPDC ---
OPTICAL EFFECTS LINE UP PERSON Discharge Instruction Condition Patient Condition: Good Diet Diet: Resume Regular Diet Activity/Restrictions Restrictions: No Exercising No Lifting No Driving No Sexual Activity Nothing in the Vagina No [place] No Tampons, douche Wound/Drain Care Instructions Wound/Drain Care Instructions: Remove Steri Strips in 1 week Follow-up Follow-up with Physician: 4, Day/Days Provider Information: Appointment clinic in 4 days to discontinue her danna Return to clinic for TRAVEL REGISTERED NURSE PACU Instructions: Fever greater than 101 Worsening abdominal pain More than 2 pads per hour OB Instructions: Breast Tenderness Blurried Vision Headache Surgical Instructions: Incisional Drainage Incisional Redness JOSE CARLOS TERRELL MD Feb 01, 2017 15:56
--- NOTE | 2017-02-01 16:05 | DS ---
Date/Time of Note Date/Time of Note DATE: 02/01/17 TIME: 16:00 Obstetrical Discharge Record Final Diagnosis Final Diagnosis: Term delivered Section Section: Primary Condition on Discharge Physical Assessment Last Vitals: Post day 3 Vital signs stable, patient has been afebrile since the day of delivery she only had a low-grade fever during the labor she was covered with antibiotics responded well and has been afebrile during the past 48 hours she is being discharged home with follow-up instructions recommended to make appointment in 4 days to discontinue danna. Voiding: Yes Bowel Movement: Yes Breast: Filling Abdomen and Incision: Healing well dry free of inflammation Calf Tenderness: No Patient Condition: Good Meds/Labs/Orders Medication List: Current Medications Acetaminophen/ Codeine Phosphate (Tylenol No.3) 1 tab Q4H PRN PO PAIN LEVEL 4-6 ; Start 01/29/17 at 17:00 Acetaminophen/ Codeine Phosphate (Tylenol No.3) 2 tab Q4H PRN PO PAIN LEVEL 7- 10; Start 01/29/17 at 17:00 Oxycodone/ Acetaminophen (Percocet (5/ 325)) 1 tab Q4H PRN PO PAIN LEVEL 4-6; Start 01/29/17 at 17:00 Oxycodone/ Acetaminophen (Percocet (5/ 325)) 2 tab Q4H PRN PO PAIN LEVEL 7-10 Last administered on 02/01/17 14:44; Admin Dose 2 TAB; Start 01/29/17 at 17:00 Ibuprofen (Motrin) 600 mg Q6 PO Last administered on 02/01/17 11:29; Admin Dose 600 MG; Start 01/29/17 at 18:00 Simethicone (Mylicon) 160 mg Q8H PRN PO DISTENSION/GAS/BLOATING; Start 01/29/17 at 17:00 Senna/Docusate Sodium 1 tab 1 tab BID PO Last administered on 02/01/17 09:32; Admin Dose 1 TAB; Start 01/30/17 at 09:00 Oxytocin/Lactated Ringer's 500 ml @ 0 mls/hr ONCE PRN IV For Hemorrhage Management; Start 01/29/17 at 17:00 Methylergonovine Maleate (Methergine) 0.2 mg ONCE PRN IM VAGINAL BLEEDING; Start 01/29/17 at 17:00 Carboprost Tromethamine (Hemabate) 250 mcg ONCE PRN IM VAGINAL BLEEDING; Start 01/29/17 at 17:00 Misoprostol (Cytotec) 1,000 mcg ONCE PRN [place] VAGINAL BLEEDING; Start 01/29/17 at 17:00 My orders: Orders-JOSE CARLOS TERRELL MD Diet Regular (02/01/17 Breakfast) Discharge (02/01/17 ) JOSE CARLOS TERRELL MD Feb 01, 2017 16:05
[2017-02-01 16:10] VITALS: BP 116/70; PULSE 75; RESP 18
== END 2017-02-01 18:00 | disposition home or self-care (01) | DRG 765 ==
LOC: OBT 21:13 → L-D 21:17 → OBT 22:00 → L-D 22:00 → PP1 01-29 16:00
PROVIDERS: ADMIT Obstetrics & Gynecology; ATTEND Obstetrics & Gynecology
PROC: 10D00Z1 Extraction of Products of Conception, Low, Open Approach (ICD-10-PCS; principal; 2017-01-29 10:45)
DX: O48.0 Post-term pregnancy (principal); O75.2 Pyrexia during labor, not elsewhere classified; Z3A.41 41 weeks gestation of pregnancy; O77.0 Labor and delivery complicated by meconium in amniotic fluid; Z37.0 Single live birth
CPT/HCPCS: 36415; 62319; 76815; 76816; 84112; 85025; 85610; 85730; 86592; 86850; 86900; 86901; 87070; 87340; 88307; 90715; 99464; G0463; J0290; J0690; J1580; J1885; J2210; J2274; J2405; J2590; J3010; J7120

== ENCOUNTER 2019-01-16 05:00 | Inpatient (IN) | payer MEDICAID ==
[~2019-01-16] VITALS: Ht 152.4 cm; Wt 78.8 kg
[2019-01-16 05:23] VITALS: Ht 152.4 cm; Wt 78.8 kg
[2019-01-16] MEDS ORDERED: LACTATED RINGER'S 1,000 ML IV SCH ×2 (05:23→08:47)
[2019-01-16 05:28] VITALS: BP 130/79; PULSE 92; RESP 17
[2019-01-16] MEDS ORDERED: OXYTOCIN 30 UNITS/LR 500 ML IV PRN ×2 (05:30→06:00)
[2019-01-16] MEDS ORDERED: METHYLERGONOVINE 0.2 MG INJ IM PRN ×2 (05:30→06:00)
[2019-01-16] MEDS ORDERED: MISOPROSTOL 200 MCG TAB PR PRN ×3 (05:30→09:00)
[2019-01-16] MEDS ORDERED: CEFAZOLIN 2 GM/50 ML (PMX) 50 ML IVPB SCH ×2 (05:30→06:00)
[2019-01-16] MEDS ORDERED: CARBOPROST 250 MCG INJ IM PRN ×2 (05:30→06:00)
[2019-01-16] MEDS ORDERED: OXYTOCIN 30 UNITS/LR 500 ML IV SCH ×2 (05:30→06:00)
[2019-01-16] MEDS: LACTATED RINGER'S 1,000 ML IV SCH ×3 (05:47→21:30)
--- NOTE | 2019-01-16 07:10 | PREAC ---
Date/Time of Note Date/Time of Note DATE: 01/16/19 TIME: 07:09 Anesthesia Eval and Record Evaluation Time Pre-Procedure Interview DATE: 01/16/19 TIME: 07:09 Age 24 Sex female NPO: 8 hrs Preoperative diagnosis repeat c section Planned procedure c section Past Medical History Past Medical History: Includes : : (2), Gestational age: (39) Surgery & Anesthesia Issues No known issue Meds Anticoagulation: No Beta Yoli within 24 hr: No Reason Beta Yoli not given: Pt. not on B-Yoli Reported Medications Ferrous Sulfate (Iron) 134 Mg Tablet, 134 MG PO, TAB 12/16/16 Multivit/Min/Fol Ac/Iron/Pren* ( S*) 1 Tab Tab, 1 TAB PO DAILY, TAB 12/16/16 Current Medications Lactated Ringer's 1,000 ml @ 125 mls/hr Q8H IV Last administered on 01/16/19at 05:47; Admin Dose 125 MLS/HR; Start 01/16/19 at 05:41 Cefazolin Sodium/ Dextrose 50 ml @ 100 mls/hr ONCE IVPB ; Start 01/16/19 at 06:00 Oxytocin/Lactated Ringer's 500 ml @ 125 mls/hr POST IV ; Start 01/16/19 at 06:00 Oxytocin/Lactated Ringer's 500 ml @ 0 mls/hr ONCE PRN IV .VAGINAL BLEEDING; Start 01/16/19 at 06:00 Methylergonovine Maleate (Methergine) 0.2 mg ONCE PRN IM .VAGINAL BLEEDING; Start 01/16/19 at 06:00 Carboprost Tromethamine (Hemabate) 250 mcg ONCE PRN IM .VAGINAL BLEEDING; Start 01/16/19 at 06:00 Misoprostol (Cytotec) 1,000 mcg ONCE PRN [place] .VAGINAL BLEEDING; Start 01/16/19 at 06:00 Meds reviewed: Yes Allergies Coded Allergies: No Known Allergy (Unverified , 01/26/17) Allergies Reviewed: Yes Labs/Studies Labs Reviewed: Reviewed by anesthesiologist Result Diagram: 01/16/19 0560 Laboratory Tests 01/16/19 05:35 Blood Bank Test 01/16/19 05:35 Blood Type O POSITIVE Rh Immune Globulin Candidate NO test: Positive Studies: ECG (n/a), CXR (n/a) Pre-procedure Exam Last vitals Vital Signs Date Temp Pulse Resp B/P (MAP) Pulse Ox O2 O2 Flow FiO2 Time Delivery Rate 01/16/19 98.5 92 17 130/79 Room Air 05:28 (96) Airway: Adequate mouth opening Mallampati: Mallampati I Teeth: Normal Lung: Normal Heart: Normal ASA Physical Status ASA physical status: 2 Emergency: None Planned Anesthetic Neuraxial: Spinal Planned Pain Management Sub-arachniod narcotics Pre-operative Attestations Prior to commencing anesthesia and surgery, the patient was re-evaluated, there was verification of: *The patient's identity *The results of appropriate recent lab work and preoperative vital signs *The above evaluation not changing prior to induction *Anesthetic plan, risk benefits, alternative and complications discussed with patient/family; questions answered; patient/family understands, accepts and wishes to proceed. JAMES ZIMMER MD Jan 16, 2019 07:10
[2019-01-16] MEDS ORDERED: CITRIC ACID/NA CITRATE 30 ML CUP PO ONE (07:30)
[2019-01-16] MEDS ORDERED: morphine (1 MG/ML) 10ML SYRINGE IV PRN ×3 (07:30)
[2019-01-16] MEDS ORDERED: ONDANSETRON 4 MG INJ IV PRN ×2 (07:30→13:30)
[2019-01-16] MEDS ORDERED: KETOROLAC 30 MG INJ IV PRN (07:30)
[2019-01-16] MEDS ORDERED: DIPHENHYDRAMINE 50 MG INJ IV PRN ×2 (07:30→13:30)
--- NOTE | 2019-01-16 08:47 | HP ---
Date/Time of Note Date/Time of Note DATE: 01/16/19 TIME: 08:45 OB - History Hx of Present Free Text/Dictation 24 YO with IUP at 39 weks with EDC 01/23/2019 with history of previous delivery, who desires to have repeat delivery. I discussed with the patient the risks, benefits, indications, and alternatives of procedure including but not limited to risks of infection, bleeding, damage to other organs, bowel, bladder, hernia formation, scar formation, possibility of blood transfusion, possible need for emergency hysterectomy. She was allowed to ask questions. All her questions were answered. Informed consent has been obtained. Care: Good Care Ultrasounds: Normal mid trimester US Obstetrical Complications: None Medical Complications: None Past Family/Social History * Past Medical, Surgical, Family and Obstetric Histories reviewed from chart. OB Admission Exam Vital Signs Vital Signs Vital Signs Date Temp Pulse Resp B/P (MAP) Pulse Ox O2 O2 Flow FiO2 Time Delivery Rate 01/16/19 98.5 92 17 130/79 Room Air 05:28 (96) Physical Exam HEENT: WNL Heart: Rhythm Normal Lungs: Clear, Equal Abdomen: WNL Extremities: Normal Reflexes: Normal Last 72 hours Lab Results CBC & BMP 01/16/19 05:35 OB Assessment/Plan Reason for admission: section Plan: Section CAROLYN MONTEIRO MD Jan 16, 2019 08:47
[2019-01-16] MEDS ORDERED: METOCLOPRAMIDE 10 MG INJ ONE (08:48)
[2019-01-16] MEDS ORDERED: KETOROLAC 30 MG INJ ONE (08:48)
[2019-01-16] MEDS ORDERED: OXYTOCIN 30 UNITS/LR 500 ML IV ONE (08:48)
[2019-01-16] MEDS ORDERED: ONDANSETRON 4 MG INJ ONE (08:48)
[2019-01-16] MEDS ORDERED: morphine SULFATE/PF (10 MG/10 ML) INJ ONE (08:48)
[2019-01-16] MEDS: SENNA/DOCUSATE NA (8.6MG/50MG) TAB PO SCH ×2 (09:00→20:46)
[2019-01-16] MEDS ORDERED: LANOLIN HPA 1 PKT TOP PRN (09:00)
[2019-01-16] MEDS ORDERED: OXYCODONE/ACETAMINOPHEN (5/325) TAB PO PRN (09:00)
[2019-01-16] MEDS ORDERED: NA PHOSPHATE/BIPHOS 133 ML ENEMA PR PRN (09:00)
[2019-01-16] MEDS ORDERED: EPHEDrine 25 MG/5 ML SYG ONE (09:03)
[2019-01-16] MEDS ORDERED: FENTAnyl 50 MCG/ML VIAL ONE (09:09)
--- NOTE | 2019-01-16 09:50 | OPR ---
Date/Time of Note Date/Time of Note DATE: 01/16/19 TIME: 09:46 Operative Report Procedure Date: Jan 16, 2019 Preoperative Diagnosis h/o prior delivery IUP at 39 weeks Postoperative Diagnosis Same Operation/Procedure Performed Repeat Delivery Surgeon Vern Hilario MD Neon Sign Erector Bharath Will MD Anesthesia Type: spinal Estimated Blood Loss: other (700) Transfusion none Specimen none Grafts/Implants none Tubes/Drains Cunningham Cath Complications none Pt Condition Post Procedure: stable Disposition: PACU Procedure Description DATE OF OPERATION: PREOPERATIVE DIAGNOSES: 1. Term , history of previous delivery: 2. Desires repeat delivery. 3. Desires permanent sterilization POSTOPERATIVE DIAGNOSES: 1. Same OPERATION PERFORMED: Repeat delivery Bilateral distal salpingectomy SURGEON: Vern Hilario MD METAL HARDENER: MD ESTIMATED BLOOD LOSS: 700 mL. COMPLICATIONS: None. The risks, benefits, indications, alternatives of procedure including, but not limited to risk of infection, bleeding, damage to other organs, bowel, bladder, hernia formation, scar formation, possibility of blood transfusions, the risks of tubal ligation such as failure and future pregnancies were discussed with the patient. She was allowed to ask questions. All her questions were answered. Informed consent was obtained. DESCRIPTION OF PROCEDURE: She was taken to the operating room. Spinal anesthesia was induced. She was prepped and draped in the usual sterile fashion. Surgical time out one. Anesthesia was tested to be adequate. With permission from anesthesiologist, a knife was used to make a Pfannenstiel skin incision. The incision was taken down in layers. The fascia was cut, undermined and sep arated from the underlying muscle using sharp and blunt dissection. All the bleeders were cauterized. Peritoneum was entered bluntly. A low transverse incision was developed over the uterus. Amniotic fluid was clear and adequate. A viable in vertex presentation was delivered without any difficulty. The cord was clamped and cut, handed to awaiting team. Placenta was then delivered. Uterus was exteriorized, wrapped around a moist lap. Inside uterus was cleaned using a dry lap. All residual membranes were removed. The uterine incision was then closed using #1 Monocryl in 2 layers. The uterus was inserted back inside the abdominal cavity. Irrigation was done carefully. Careful evaluation of the uterine incision revealed no further bleeding. The peritoneum and rectus muscles and fascia were evaluated. All bleeders cauterized. Peritoneum was closed using 2-0 Monocryl. At this time, the count was correct. Rectus muscle was reapproximated using 2-0 Monocryl. Rectus fascia was closed using #1 Vicryl. Subcutaneous tissue was cleaned and irrigated. All bleeders cauterized and the skin closed using 4-0 Monocryl. All counts correct. VERN HILARIO MD Jan 16, 2019 09:50
[2019-01-16] MEDS ORDERED: ACETAMINOPHEN 1000MG/100ML IV 100 ML IVPB ONE (10:00)
[2019-01-16] MEDS: IBUPROFEN 600 MG TAB PO SCH ×2 (12:00→18:00)
--- NOTE | 2019-01-16 12:02 | PAC ---
Date/Time of Note Date/Time of Note DATE: 01/16/19 TIME: 12:00 Post-Anesthesia Notes Post-Anesthesia Note Last documented vital signs Vital Signs Date Temp Pulse Resp B/P (MAP) Pulse Ox O2 O2 Flow FiO2 Time Delivery Rate 01/16/19 98.5 92 17 130/79 Room Air 05:28 (96) @ 11:59 BP 117/66, Sat 97% HR87 RR19, Temp 98 Activity: WNL Respiratory function: WNL Cardiovascular function: WNL Mental status: Baseline Pain reasonably controlled: Yes Hydration appropriate: Yes Nausea/Vomiting absent: No JAMES ZIMMER MD Jan 16, 2019 12:02
[2019-01-16 12:40] VITALS: BP 120/64; PULSE 77; RESP 18
[2019-01-16] MEDS ORDERED: morphine 2 MG INJ IV PRN ×3 (13:30)
[2019-01-16] MEDS ORDERED: NALOXONE (0.4 MG/ML) INJ IV PRN (13:30)
[2019-01-16 13:47] VITALS: BP 120/62; PULSE 78; RESP 20
[2019-01-16 15:52] VITALS: BP 118/72; PULSE 77; RESP 18
[2019-01-16 19:45] VITALS: BP 106/64; PULSE 64; RESP 18
[2019-01-17] VITALS: BP 122/75; PULSE 98; RESP 18
[2019-01-17] MEDS: KETOROLAC 30 MG INJ IV PRN ×2 (00:44→06:10)
[2019-01-17 04:03] VITALS: BP 117/72; PULSE 104; RESP 18
[2019-01-17] MEDS: LACTATED RINGER'S 1,000 ML IV SCH (05:17)
[2019-01-17] MEDS: IBUPROFEN 600 MG TAB PO SCH ×5 (06:00→23:50)
--- NOTE | 2019-01-17 07:58 | OPPN ---
Date/Time of Note Date/Time of Note DATE: 01/17/19 TIME: 07:57 Anesthesia Follow up Anesthesia Follow up Last documented vital signs Vital Signs Date Temp Pulse Resp B/P (MAP) Pulse Ox O2 O2 Flow FiO2 Time Delivery Rate 01/17/19 99.0 104 18 117/72 97 Room Air 04:03 (87) Respiratory function: WNL Cardiovascular function: WNL Comments A 24 year female s/p spinal duramorph POD #1 is doing fine. No pain, headache, N?V, itching, neural deficit. JAMES ZIMMER MD Jan 17, 2019 07:58
[2019-01-17 08:15] VITALS: BP 106/54; PULSE 85; RESP 18
[2019-01-17] MEDS: SENNA/DOCUSATE NA (8.6MG/50MG) TAB PO SCH ×2 (10:39→21:05)
[2019-01-17] MEDS: OXYCODONE/ACETAMINOPHEN (5/325) TAB PO PRN ×2 (10:40→18:06)
--- NOTE | 2019-01-17 14:41 | QN ---
Documentation Comment s/p c/s Subjective: no complaint Objective: Afebrile, VSS NAD A&O Abdomen: soft, appropriate tender Incision: no sign of bleeding/infection mild lochia Extremity: 1+ edema bilaterally Assessment: S/p C/S POD # 1 Recovering Well Plan: current care CAROLYN MONTEIRO MD Jan 17, 2019 14:41
[2019-01-17 16:00] VITALS: BP 104/62; PULSE 70; RESP 17
[2019-01-17 20:00] VITALS: BP 115/73; PULSE 77; RESP 18
[2019-01-18 04:02] VITALS: BP 115/61; PULSE 79; RESP 18
[2019-01-18] MEDS: IBUPROFEN 600 MG TAB PO SCH ×4 (05:22→23:34)
[2019-01-18 08:00] VITALS: BP 111/71; PULSE 83; RESP 20
[2019-01-18] MEDS: OXYCODONE/ACETAMINOPHEN (5/325) TAB PO PRN (09:00)
[2019-01-18] MEDS: SENNA/DOCUSATE NA (8.6MG/50MG) TAB PO SCH ×2 (09:00→20:48)
[2019-01-18 16:00] VITALS: BP 109/83; PULSE 77; RESP 18
--- NOTE | 2019-01-18 19:18 | DS ---
Date/Time of Note Date/Time of Note DATE: 01/18/19 TIME: 19:17 Obstetrical Discharge Record Final Diagnosis Final Diagnosis: Term delivered Section Section: Repeat Complications Augmentation: No Induction: No Rupture of Membranes: No Condition on Discharge Physical Assessment Voiding: Yes Bowel Movement: Yes Breast: Soft, non-tender, Filling Fundus: Firm Abdomen and Incision: soft, appropriate tenderness Episiotomy: NA Calf Tenderness: No Patient Condition: Good CAROLYN MONTEIRO MD Jan 18, 2019 19:18
[2019-01-18 20:00] VITALS: BP 130/81; PULSE 86; RESP 18
[2019-01-19 03:56] VITALS: BP 127/75; PULSE 77; RESP 18
[2019-01-19] MEDS: IBUPROFEN 600 MG TAB PO SCH ×2 (05:32→11:55)
[2019-01-19] MEDS ORDERED: MEASLES,MUMPS,RUBELLA VACCINE INJ SC* ONE (09:00)
[2019-01-19] MEDS ORDERED: DIPHTH/TET/ACEL PERTUSS (ADULT) 0.5 ML VIAL IM* ONE (09:00)
[2019-01-19 09:04] VITALS: BP 121/83; PULSE 91; RESP 18
[2019-01-19] MEDS: SENNA/DOCUSATE NA (8.6MG/50MG) TAB PO SCH (09:20)
== END 2019-01-19 13:00 | disposition home or self-care (01) | DRG 785 ==
LOC: L-D 05:00 → PP1 12:36
PROVIDERS: ADMIT Specialist; ATTEND Specialist
PROC: 0UB70ZZ Excision of Bilateral Fallopian Tubes, Open Approach (ICD-10-PCS; 2019-01-16)
PROC: 10D00Z1 Extraction of Products of Conception, Low, Open Approach (ICD-10-PCS; principal; 2019-01-16 08:00)
DX: O34.211 Maternal care for low transverse scar from previous cesarean delivery (principal); Z3A.39 39 weeks gestation of pregnancy; Z37.0 Single live birth; Z30.2 Encounter for sterilization
CPT/HCPCS: 85025; 85610; 85730; 86592; 86850; 86900; 86901; 87340; 99464; J0131; J0690; J1885; J2274; J2405; J2590; J2765; J3010; J7120